=== PATIENT | male | born 1965 | race African-American/Black ===

== ENCOUNTER 2017-06-14 17:04 | Emergency (ER) | payer SELFPAY ==
--- NOTE | 2017-06-14 17:25 | ER Document Report ---
ED Medical Screen (RME) - General Chief Complaint: Leg Pain Stated Complaint: RIGHT LEG PAIN Time Seen by Provider: 06/14/17 17:18 Mode of Arrival: Wheelchair Information source: Patient, Relative TRAVEL OUTSIDE OF THE U.S. IN LAST 30 DAYS: No - HPI Patient complains to provider of: R leg pain Onset: Yesterday - Pt. with h/o arterial shunts in both [place] with c/o R leg (thigh) pain starting yesterday - Related Data Allergies/Adverse Reactions: No Known Allergies Allergy (Unverified 06/14/17 17:11) Past Medical History Renal/ Medical History: Denies: Hx Peritoneal Dialysis Physical Exam - Vital signs Vitals: Temp Pulse Resp BP Pulse Ox 98.6 F 108 H 18 149/74 H 99 06/14/17 17:10 06/14/17 17:10 06/14/17 17:10 06/14/17 17:10 06/14/17 17:10 Course - Vital Signs Vital signs: Temp Pulse Resp BP Pulse Ox 98.6 F 108 H 18 149/74 H 99 06/14/17 17:10 06/14/17 17:10 06/14/17 17:10 06/14/17 17:10 06/14/17 17:10
[2017-06-14 17:40] LABS: ABSOLUTE BASOPHILS # (AUTO) 0.1 10^3/uL (0.0-0.2); ABSOLUTE EOSINOPHILS # (AUTO) 0.2 10^3/uL (0.0-0.6); ABSOLUTE LYMPHOCYTES (AUTO) 1.8 10^3/uL (0.5-4.7); ABSOLUTE MONOCYTES (AUTO) 0.5 10^3/uL (0.1-1.4); ABSOLUTE NEUT (AUTO) 3.5 10^3/uL (1.7-8.2); BASOPHILS % (AUTO) 1.1 % (0-2); EOSINOPHILS % (AUTO) 3.6 % (0-6); HEMATOCRIT 38.2 % (37.9-51.0); HEMOGLOBIN 12.4 g/dL (13.5-17.0); LYMPHOCYTES % (AUTO) 29.3 % (13-45); MEAN CORPUSCULAR HEMOGLOBIN 27.6 pg (27.0-33.4); MEAN CORPUSCULAR HGB CONC 32.5 g/dL (32.0-36.0); MEAN CORPUSCULAR VOLUME 85 fl (80-97); MONOCYTES % (AUTO) 8.7 % (3-13); RED BLOOD COUNT 4.49 10^6/uL (4.35-5.55); SEGMENTED NEUTROPHILS % (AUTO) 57.3 % (42-78); WHITE BLOOD COUNT 6.1 10^3/uL (4.0-10.5)
[2017-06-14 17:58] LABS: ALANINE AMINOTRANSFERASE 26 U/L (21-72); ALBUMIN 3.7 g/dL (3.5-5.0); ALKALINE PHOSPHATASE 176 U/L (38-126); ANION GAP 13 (5-19); ASPARTATE AMINO TRANSFERASE 16 U/L (17-59); BILIRUBIN,DIRECT 0.3 mg/dL (0.0-0.4); BILIRUBIN,TOTAL 0.6 mg/dL (0.2-1.3); BLOOD UREA NITROGEN 19 mg/dL (7-20); CALCIUM 9.3 mg/dL (8.4-10.2); CARBON DIOXIDE 23 mmol/L (22-30); CHLORIDE 103 mmol/L (98-107); CREATININE RESULT 1.38 mg/dL (0.52-1.25); GLUCOSE 255 mg/dL (75-110); POTASSIUM 4.4 mmol/L (3.6-5.0); SODIUM 139.3 mmol/L (137-145); TOTAL PROTEIN 6.3 g/dL (6.3-8.2)
--- NOTE | 2017-06-14 18:09 | ER Document Report ---
ED Extremity Problem, Lower - General Chief Complaint: Leg Pain Stated Complaint: RIGHT LEG PAIN Time Seen by Provider: 06/14/17 17:18 Mode of Arrival: Wheelchair Notes: The patient is a 51-year-old male, past medical history PAD with right femoral artery stent performed in [place], presents with increasing right upper leg pain is worse when he walks. He recently moved here from [place]. He denies numbness, tingling, injury, hip pain, back pain, urinary symptoms, fevers or rash. TRAVEL OUTSIDE OF THE U.S. IN LAST 30 DAYS: No - Related Data Allergies/Adverse Reactions: No Known Allergies Allergy (Unverified 06/14/17 17:11) Past Medical History - General Information source: Patient, Relative - Social History Smoking Status: Never Smoker Chew tobacco use (# tins/day): No Frequency of alcohol use: None Drug Abuse: None Family History: Reviewed & Not Pertinent - Past Medical History Cardiac Medical History: Reports: Hx Hypercholesterolemia, Hx Hypertension Endocrine Medical History: Reports: Hx Diabetes Mellitus Type 2 Renal/ Medical History: Denies: Hx Peritoneal Dialysis Review of Systems - Review of Systems Notes: REVIEW OF SYSTEMS: CONSTITUTIONAL: -fevers, -chills EENT: -eye pain, -difficulty swallowing, -nasal congestion CARDIOVASCULAR:-chest pain, -syncope. RESPIRATORY: -cough, -SOB GASTROINTESTINAL: -abdominal pain, - nausea, -vomiting, -diarrhea GENITOURINARY: -dysuria, -hematuria MUSCULOSKELETAL: +right upper leg pain, -back pain, -neck pain SKIN: -rash or skin lesions. HEMATOLOGIC: -easy bruising or bleeding. LYMPHATIC: -swollen, enlarged glands. NEUROLOGICAL: -altered mental status or loss of consciousness, -headache, - neurologic symptoms PSYCHIATRIC: -anxiety, -depression. ALL OTHER SYSTEMS REVIEWED AND NEGATIVE. Physical Exam - Vital signs Vitals: Temp Pulse Resp BP Pulse Ox 98.6 F 108 H 18 149/74 H 99 06/14/17 17:10 06/14/17 17:10 06/14/17 17:10 06/14/17 17:10 06/14/17 17:10 - Notes Notes: PHYSICAL EXAMINATION: GENERAL: Well-appearing, well-nourished and in no acute distress. HEAD: Atraumatic, normocephalic. EYES: Pupils equal round and reactive to light, extraocular movements intact, sclera anicteric, conjunctiva are normal. ENT: nares patent, oropharynx clear without exudates. Moist mucous membranes. NECK: Normal range of motion, supple without lymphadenopathy LUNGS: Breath sounds clear to auscultation bilaterally and equal. No wheezes rales or rhonchi. HEART: Regular rate and rhythm without murmurs ABDOMEN: Soft, nontender, normoactive bowel sounds. No guarding, no rebound. No masses appreciated. EXTREMITIES: Tenderness over right anterior thigh, sensation intact distally, strong DP, PT and popliteal pulses. Normal range of motion, no pitting or edema. No cyanosis. NEUROLOGICAL: Cranial nerves grossly intact. Normal speech, normal gait. Normal sensory and motor exams. PSYCH: Normal mood, normal affect. SKIN: Warm, Dry, normal turgor, no rashes or lesions noted. Course - Re-evaluation Re-evalutation: Patient does not have evidence of DVT and he has good flow through his femoral artery stent and rest of arteries. Labs are unremarkable. Suspect a quadricep muscle strain causing his symptoms. Instructed him to continue Tylenol, NSAIDs and f/u with PMD. Also, provided him with the Vascular Surgeon in [facility] for close f/u since he has now moved to [place], [place] and he has PAD. - Vital Signs Vital signs: Temp Pulse Resp BP Pulse Ox 97.5 F 97 20 148/80 H 99 06/14/17 19:58 06/14/17 19:58 06/14/17 19:58 06/14/17 19:58 06/14/17 19:58 - Laboratory Result Diagrams: 06/14/17 17:28 06/14/17 17:28 Laboratory results interpreted by me: 06/14/17 06/14/17 17:28 17:28 Hgb 12.4 L RDW 15.0 H Creatinine 1.38 H Est GFR (Non-Af Amer) 54 L Glucose 255 H AST 16 L Alkaline Phosphatase 176 H - Diagnostic Test Radiology reviewed: Image reviewed, Reports reviewed Discharge - Discharge Clinical Impression: Right leg pain Condition: Stable Disposition: HOME, SELF-CARE Additional Instructions: Your ultrasound today shows good blood flow through your arteries and stents. You may apply ice packs and take Aleve to help with any pain. Follow-up with your primary care physician and vascular surgeon. Sprain Your injury is a sprain. A sprain results from stretching or tearing of the ligaments, usually from a twisting injury. The ligaments will require time and protection in order to heal properly. Many sprains are quite disabling and should be taken seriously. The usual initial treatment of sprains is cold packs, elevation, and rest of the injured area. Your physician has assessed the seriousness of your ligament injury, and has outlined a treatment plan. Understand that this treatment may change, depending on how you progress. If a re-examination was recommended, it is important that you follow up as instructed. Call the doctor any time if there is severe pain, numbness, or loss of function in the injured area. Forms: Elevated Blood Pressure Referrals: ADALID LATIF MD [ACTIVE STAFF] - Follow up as needed
[2017-06-14] MEDS ORDERED: NAPROXEN 250 MG TABLET PO ONE (18:46)
[2017-06-14 20:02] VITALS: BP 148/80
--- NOTE | 2017-06-14 20:04 | RADIOLOGY REPORT (SQ) ---
EXAM DESCRIPTION: VENOUS UNILATERAL LOWER COMPLETED DATE/TIME: 06/14/2017 7:45 pm REASON FOR STUDY: R leg pain COMPARISON: None. TECHNIQUE: Dynamic and static macias scale and color images acquired of the right leg venous system. S elected spectral images acquired with additional compression and augmentation maneuvers. The contrala teral common femoral vein and saphenofemoral junction were also imaged. Images stored on PACS. LIMITATIONS: None. FINDINGS: COMMON FEMORAL: Normal phasicity, compression and augmentation. No visualized echogenic ma terial on macias scale. No defects on color images. FEMORAL: Normal compression and augmentation. No visualized echogenic material on macias scale. No defe cts on color images. POPLITEAL: Normal compression, augmentation. No visualized echogenic material on macias scale. No defec ts on color images. CALF VESSELS: Normal compression, augmentation. No visualized echogenic material on macias scale. No de fects on color images. GSV and SSV: Normal compression, augmentation. No visualized echogenic material on macias scale. No def ects on color images. ANY DEEP VENOUS INSUFFICIENCY: Not evaluated. ANY EVIDENCE OF POPLITEAL CYST: No. OTHER: No other significant finding. CONTRALATERAL COMMON FEMORAL VEIN AND SAPHENOFEMORAL JUNCTION: Normal phasicity, compression and augmentation. No visualized echogenic material on macias scale. No de fects on color images. IMPRESSION: NO EVIDENCE OF DVT OR SVT IN THE RIGHT LEG. TECHNICAL DOCUMENTATION: JOB ID: [id number] [employer]- All Rights Reserved
== END 2017-06-14 20:02 | disposition home or self-care (01) ==
LOC: ER 17:04
DX: M79.651 Pain in right thigh (principal); E78.00 Pure hypercholesterolemia, unspecified; I10 Essential (primary) hypertension; E11.9 Type 2 diabetes mellitus without complications; Z98.890 Other specified postprocedural states
CPT/HCPCS: 36415; 80053; 85025; 93971; 99284

== ENCOUNTER 2017-12-11 23:24 | Emergency (ER) | payer BC ==
[2017-12-12] MEDS ORDERED: NORMAL SALINE 1000 ML 1,000 ML IV ONE (00:50)
[2017-12-12] MEDS ORDERED: DIPHENHYDRAMINE HCL 50 MG/ML VIAL IV ONE (00:50)
[2017-12-12] MEDS ORDERED: METOCLOPRAMIDE HCL INJ/PF 10 MG/2 ML SDV IV ONE (00:50)
--- NOTE | 2017-12-12 00:51 | ER Document Report ---
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 He does not remember a neck injury. Patient denies blurry vision, fevers, chest pain, shortness of breath, nausea, vomiting, back pain, ataxia, focal weakness, numbness, tingling or sudden onset of headache. TRAVEL OUTSIDE OF THE U.S. IN LAST 30 DAYS: No - Related Data Allergies/Adverse Reactions: No Known Allergies Allergy (Unverified 06/14/17 17:11) Past Medical History - General Information source: Patient - Social History Smoking Status: Unknown if Ever Smoked Family History: Reviewed & Not Pertinent - Past Medical History Cardiac Medical History: Reports: Hx Hypercholesterolemia, Hx Hypertension Endocrine Medical History: Reports: Hx Diabetes Mellitus Type 2 Renal/ Medical History: Denies: Hx Peritoneal Dialysis Review of Systems - Review of Systems Notes: REVIEW OF SYSTEMS: CONSTITUTIONAL: -fevers, -chills EENT: -eye pain, -difficulty swallowing, -nasal congestion CARDIOVASCULAR: -chest pain, -syncope. RESPIRATORY: -cough, -SOB GASTROINTESTINAL: -abdominal pain, -nausea, -vomiting, -diarrhea GENITOURINARY: -dysuria, -hematuria MUSCULOSKELETAL: -back pain, -neck pain SKIN: -rash or skin lesions. HEMATOLOGIC: -easy bruising or bleeding. LYMPHATIC: -swollen, enlarged glands. NEUROLOGICAL: -altered mental status or loss of consciousness, +headache, - neurologic symptoms PSYCHIATRIC: -anxiety, -depression. ALL OTHER SYSTEMS REVIEWED AND NEGATIVE. Physical Exam - Vital signs Vitals: Temp Pulse Resp BP Pulse Ox 98.9 F 99 18 153/68 H 97 12/11/17 23:54 12/11/17 23:54 12/11/17 23:54 12/11/17 23:54 12/11/17 23:54 - Notes Notes: PHYSICAL EXAMINATION: GENERAL: Well-appearing, well-nourished and in no acute distress. HEAD: Atraumatic, normocephalic. EYES: Pupils equal round and reactive to light, extraocular movements intact, sclera anicteric, conjunctiva are normal. ENT: nares patent, oropharynx clear without exudates. Moist mucous membranes. NECK: Tenderness over B/L posterior paraspinal muscles. Normal range of motion, supple without lymphadenopathy LUNGS: Breath sounds clear to auscultation bilaterally and equal. No wheezes rales or rhonchi. HEART: Regular rate and rhythm without murmurs ABDOMEN: Soft, nontender, normoactive bowel sounds. No guarding, no rebound. No masses appreciated. EXTREMITIES: Normal range of motion, no pitting or edema. No cyanosis. NEUROLOGICAL: Cranial nerves grossly intact. Normal speech, normal gait. Normal sensory and motor exams. PSYCH: Normal mood, normal affect. SKIN: Warm, Dry, normal turgor, no rashes or lesions noted. Course - Re-evaluation Re-evalutation: Patient appears well. His symptoms are consistent with a tension headache from neck strain. He has absolutely no neuro symptoms to suggest a CVA and his symptoms are not consistent with meningitis, SAH or ICH at this time. After anti-inflammatories and Robaxin, he feels much better. Instructed him to continue this medication follow-up with his primary care physician for further evaluation and treatment. - Vital Signs Vital signs: Temp Pulse Resp BP Pulse Ox 98.9 F 99 26 H 151/83 H 99 12/11/17 23:54 12/11/17 23:54 12/12/17 01:02 12/12/17 01:01 12/12/17 01:02 Discharge - Discharge Clinical Impression: Tension headache Condition: Stable Disposition: HOME, SELF-CARE Additional Instructions: HEADACHE: The physician does not feel that the headache you are experiencing has a serious underlying cause. Most headaches are due to emotional stress, with resultant muscle tension (tension headache). Occasionally, headaches are secondary to changes in the blood vessels of the scalp (vascular headache and migraine headache). Sometimes, a headache is the first symptom of another developing illness, such as a viral infection. You have no evidence of stroke, bleeding, meningitis, or other serious cause of your headache. The treatment of headaches varies with the severity and cause of the pain. Not all headaches need pain shots. In fact, there is evidence that using narcotics for headaches may make them worse in the long run. The physician will determine the therapy that's in your best interest. If you develop a fever, if the headache is different from any you've previously experienced, or if the headache progressively worsens, then call your physician at once or go to the emergency room. TORADOL INJECTION: You have been given an injection of ketorolac tromethamine (Toradol). This is an excellent, safe drug for pain control. It also has potent antiinflammatory action. You should have significant pain relief within about one hour. Toradol is not addicting and is non-sedating. It does not interfere with driving or work. Call or return if you develop itching, hives, shortness of breath, or rash. FOLLOW-UP CARE: If you have been referred to a physician for follow-up care, call the physician s office for an appointment as you were instructed or within the next two days. If you experience worsening or a significant change in your symptoms, notify the physician immediately or return to the Emergency Department at any time for re-evaluation. Prescriptions: Methocarbamol [Robaxin 500 mg Tablet] 500 mg PO Q4H PRN #15 tablet PRN Reason: Naproxen [Naprosyn 250 mg Tablet] 500 mg PO Q12H PRN #14 tablet PRN Reason: Forms: Elevated Blood Pressure Referrals: LUPIS MATA MD [COMMUNITY BASED STAFF] - Follow up as needed
[2017-12-12] MEDS ORDERED: KETOROLAC TROMETHAMINE 60 MG/2 ML SDV IM ONE (01:06)
[2017-12-12] MEDS ORDERED: METHOCARBAMOL 500 MG TABLET PO ONE (01:06)
[2017-12-12 01:46] VITALS: BP 151/83
== END 2017-12-12 01:49 | disposition home or self-care (01) ==
LOC: ER 23:24
DX: G44.209 Tension-type headache, unspecified, not intractable (principal); M54.2 Cervicalgia; I69.30 Unspecified sequelae of cerebral infarction; I10 Essential (primary) hypertension; E11.9 Type 2 diabetes mellitus without complications
CPT/HCPCS: 99284; 96372; J1885

== ENCOUNTER 2018-02-09 14:37 | Emergency (ER) | payer BC ==
[2018-02-09] MEDS ORDERED: NORMAL SALINE 1000 ML 1,000 ML IV ONE (16:04)
--- NOTE | 2018-02-09 16:07 | ER Document Report ---
ED Medical Screen (RME) - General Chief Complaint: Leg Pain Stated Complaint: LEFT SIDE PAIN Time Seen by Provider: 02/09/18 15:52 Mode of Arrival: Ambulatory Information source: Patient TRAVEL OUTSIDE OF THE U.S. IN LAST 30 DAYS: No - HPI Patient complains to provider of: leg cramps Notes: 02/09/18 16:06 Patient is here with complaints of leg cramps. The patient's had prior stroke. States that today he was having significant cramps in both of his legs mainly in the calf and he was having difficulty walking due to this. He denies any nausea, vomiting. No chest pain or shortness of breath. He denies any unilateral numbness, tingling, weakness. Physical exam: Nontoxic-appearing in no distress. Nonfocal neurological exam. Tenderness to the bilateral calves. Plan: CBC, CMP, mag, phosphorus, CPK, IV fluids. An initial examination was made on the patient as part of the triage process, and it was determined a more comprehensive evaluation was necessary. Initial labs were ordered and patient was transferred to another provider in the ED who assumed care and finished evaluation and plan. - Related Data Allergies/Adverse Reactions: No Known Allergies Allergy (Verified 02/09/18 14:52) Past Medical History - Past Medical History Cardiac Medical History: Reports: Hx Hypercholesterolemia, Hx Hypertension Endocrine Medical History: Reports: Hx Diabetes Mellitus Type 2 Renal/ Medical History: Denies: Hx Peritoneal Dialysis Physical Exam - Vital signs Vitals: Temp Pulse Resp BP Pulse Ox 98.7 F 105 H 15 157/87 H 99 02/09/18 14:51 02/09/18 14:51 02/09/18 14:51 02/09/18 14:51 02/09/18 14:51 Course - Vital Signs Vital signs: Temp Pulse Resp BP Pulse Ox 98.7 F 105 H 15 157/87 H 99 02/09/18 14:51 02/09/18 14:51 02/09/18 14:51 02/09/18 14:51 02/09/18 14:51
--- NOTE | 2018-02-09 17:09 | ER Document Report ---
ED General - General Chief Complaint: Leg Pain Stated Complaint: LEFT SIDE PAIN Time Seen by Provider: 02/09/18 15:52 Mode of Arrival: Ambulatory TRAVEL OUTSIDE OF THE [place].S. IN LAST 30 DAYS: No - HPI Notes: Patient is a 52-year-old male with a previous history of CVA, PAD, tobacco abuse who presents to the ED complaining of bilateral lower extremity cramping that began today. Patient states that his cramping is worse when he is lying down. He notices that most of his pain is in his calves bilaterally. Patient states that he does have swelling of both lower extremities which is normal for him. Patient does admit to some day smoking. Denies any IV drug use. Denies any prolonged immobilization, previous DVT/PE, cancer, hormone use, recent surgery/trauma. Patient has a past medical history significant for diabetes, hypertension and is on Plavix as well. he also had stents put in his b/l LE's. no significant cardiac history otherwise. Denies any drug allergies. Patient states that he is still eating and drinking without difficulties. He is urinating normally and having normal bowel movements. No other concerns or complaints at this time. Denies any headache, fever, neck pain, URI, sore throat, chest pain, palpitations, syncope, cough, shortness of breath, wheeze, dyspnea, abdominal pain, nausea/vomiting/diarrhea, urinary retention, dysuria, hematuria, back pain, loss of control of bowel or bladder, numbness/tingling, saddle anesthesia, muscle paralysis/weakness, or rash. - Related Data Allergies/Adverse Reactions: No Known Allergies Allergy (Verified 02/09/18 18:26) Past Medical History - General Information source: Patient - Social History Smoking Status: Current Some Day Smoker Family History: Reviewed & Not Pertinent - Past Medical History Cardiac Medical History: Reports: Hx Hypercholesterolemia, Hx Hypertension Endocrine Medical History: Reports: Hx Diabetes Mellitus Type 2 Renal/ Medical History: Denies: Hx Peritoneal Dialysis Review of Systems - Review of Systems -: Yes All other systems reviewed and negative Physical Exam - Vital signs Vitals: Temp Pulse Resp BP Pulse Ox 98.7 F 105 H 15 157/87 H 99 02/09/18 14:51 02/09/18 14:51 02/09/18 14:51 02/09/18 14:51 02/09/18 14:51 - Notes Notes: PHYSICAL EXAMINATION: GENERAL: Well-appearing, well-nourished and in no acute distress. LUNGS: Breath sounds clear to auscultation bilaterally and equal. No wheezes rales or rhonchi. HEART: Regular rate and rhythm without murmurs, rubs, gallops. ABDOMEN: Soft, nontender, nondistended abdomen. No guarding, no rebound. No masses appreciated. Normal bowel sounds present. No CVA tenderness bilaterally. Musculoskeletal: Legs b/l: FROM to passive/active. Strength 5+/5. Extremities: 1+ pitting edema b/l. Peripheral pulses 1+. Capillary refill less than 3 seconds. + tenderness to the calves b/l. NEUROLOGICAL: Normal speech, normal gait. Normal sensory, motor exams PSYCH: Normal mood, normal affect. SKIN: Warm, Dry, normal turgor, no rashes or lesions noted. Course - Re-evaluation Re-evalutation: 02/09/18 20:55 Patient is an afebrile, well-hydrated, 52-year-old male who presents to the ED with remittent cramping in his lower extremities unspecified. Vitals are acceptable. PE is otherwise unremarkable for any neurovascular compromise, obvious tendon/ligament rupture, obvious fracture/dislocation, cellulitis or other infection. Per pest control technician, unofficial results state no DVT and stents are operating as they should with good pulses throughout. Patient to be given Toradol IM. I will send him home with a prescription for baclofen. Conservative measures otherwise for symptoms. Recheck with your PCM in 2-3 days. Consider consult orthopedics. Return to the ED with any worsening/ concerning symptoms otherwise as reviewed discharge. Patient is in agreement. - Vital Signs Vital signs: Temp Pulse Resp BP Pulse Ox 98.7 F 105 H 15 157/87 H 99 02/09/18 14:51 02/09/18 14:51 02/09/18 14:51 02/09/18 14:51 02/09/18 14:51 - Laboratory Result Diagrams: 02/09/18 17:13 02/09/18 17:13 Laboratory results interpreted by me: 02/09/18 02/09/18 17:13 17:13 Hgb 13.2 L RDW 15.7 H Glucose 162 H Alkaline Phosphatase 138 H Creatine Kinase 265 H Discharge - Discharge Clinical Impression: Leg cramping Condition: Stable Disposition: HOME, SELF-CARE Instructions: Leg Pain Nonspecific ([facility]) Additional Instructions: Rest, Ice, Compression, Elevation Tylenol/ibuprofen as needed Light stretches daily Strength exercises as able Moist heat and massage may help F/u with your PCP in 3-5 days for a recheck Consider consult(s) with Orthopedics/physical therapy for ongoing/worsening symptoms Return to the ED with any worsening symptoms and/or development of fever, headache, chest pain, palpitations, syncope, shortness of breath, trouble breathing, abdominal pain, n/v/d, muscle weakness/paralysis, numbness/tingling, swelling, redness, or other worsening symptoms that are concerning to you. Prescriptions: Baclofen [Baclofen 10 mg Tablet] 5 - 10 mg PO BID PRN #10 tablet PRN Reason: Naproxen 500 mg PO BID PRN #30 tablet PRN Reason: Forms: Elevated Blood Pressure Referrals: MUKUL FITZGERALD MD [Primary Care Provider] - 02/11/18 [facility] [Provider Group] - Follow up as needed
[2018-02-09 17:26] LABS: ABSOLUTE BASOPHILS # (AUTO) 0.1 10^3/uL (0.0-0.2); ABSOLUTE EOSINOPHILS # (AUTO) 0.3 10^3/uL (0.0-0.6); ABSOLUTE MONOCYTES (AUTO) 0.9 10^3/uL (0.1-1.4); ABSOLUTE NEUT (AUTO) 6.7 10^3/uL (1.7-8.2); BASOPHILS % (AUTO) 0.9 % (0-2); EOSINOPHILS % (AUTO) 2.7 % (0-6); HEMATOCRIT 39.4 % (37.9-51.0); HEMOGLOBIN 13.2 g/dL (13.5-17.0); LYMPHOCYTES % (AUTO) 20.2 % (13-45); MEAN CORPUSCULAR HEMOGLOBIN 28.7 pg (27.0-33.4); MEAN CORPUSCULAR HGB CONC 33.4 g/dL (32.0-36.0); MEAN CORPUSCULAR VOLUME 86 fl (80-97); MONOCYTES % (AUTO) 9.2 % (3-13); PLATELET COUNT 250 10^3/uL (150-450); RED BLOOD COUNT 4.58 10^6/uL (4.35-5.55); RED CELL DISTRIBUTION WIDTH 15.7 % (11.5-14.0); TOTAL CELLS COUNTED % (AUTO) 100 %
[2018-02-09 17:50] LABS: ALANINE AMINOTRANSFERASE 34 U/L (21-72); ALBUMIN 3.7 g/dL (3.5-5.0); ALKALINE PHOSPHATASE 138 U/L (38-126); ANION GAP 11 (5-19); ASPARTATE AMINO TRANSFERASE 21 U/L (17-59); BILIRUBIN,DIRECT 0.3 mg/dL (0.0-0.4); BILIRUBIN,TOTAL 0.8 mg/dL (0.2-1.3); BLOOD UREA NITROGEN 13 mg/dL (7-20); CALCIUM 8.9 mg/dL (8.4-10.2); CARBON DIOXIDE 27 mmol/L (22-30); CHLORIDE 103 mmol/L (98-107); CREATINE KINASE 265 U/L (55-170); GLUCOSE 162 mg/dL (75-110); PHOSPHORUS 3.5 mg/dL (2.5-4.5); POTASSIUM 4.1 mmol/L (3.6-5.0); SODIUM 141.1 mmol/L (137-145); TOTAL PROTEIN 6.4 g/dL (6.3-8.2)
[2018-02-09] MEDS ORDERED: KETOROLAC TROMETHAMINE INJ/PF 30 MG/1 ML SDV IM ONE (20:58)
[2018-02-09 21:13] VITALS: BP 149/84
--- NOTE | 2018-02-10 11:04 | XCELERA REPORT ---
[address] [address] Lower Extremity Venous Evaluation Name: EMPERATRIZ ALVAREZ JR Age: 52 yrs Gender: Male : 1965 Patient Status: Emergency Patient Location: ER Study Date: 02/09/2018 08:20 PM Procedure: Color flow and duplex imaging bilaterally of the veins of the lower extremities as well as the Common Femoral veins. Reason For Study: calf pains b/l Ordering Physician: LUPIS SORTO PA-C Performed By: Ruthann Winston Right Sided Venous Evaluation Normal vessel filling wall to wall, compression and augmentation as well as Colour flow down to the infrageniculate veins. Left Sided Venous Evaluation Normal vessel filling wall to wall, compression and augmentation as well as Colour flow down to the infrageniculate veins. Interpretation Summary No duplex evidence of DVT or obstruction in the bilateral lower extremities. : LUPIS SORTO PA-C > Chinmay Thompson
== END 2018-02-09 21:12 | disposition home or self-care (01) ==
LOC: ER 14:37
DX: R25.2 Cramp and spasm (principal); M79.662 Pain in left lower leg; M79.661 Pain in right lower leg; R60.0 Localized edema; E11.51 Type 2 diabetes mellitus with diabetic peripheral angiopathy without gangrene; I10 Essential (primary) hypertension; F17.200 Nicotine dependence, unspecified, uncomplicated; Z95.820 Peripheral vascular angioplasty status with implants and grafts; Z86.73 Personal history of transient ischemic attack (TIA), and cerebral infarction without residual deficits; Z79.02 Long term (current) use of antithrombotics/antiplatelets
CPT/HCPCS: 99284; 36415; 82550; 83735; 84100; 85025; 80053; 93970 ×2; J1885; J7030

== ENCOUNTER → 2018-02-20 | Outpatient (CLI) | payer BC ==
--- NOTE | 2018-02-20 13:30 | RADIOLOGY REPORT (SQ) ---
EXAM DESCRIPTION: U/S RETROPERITON (RENAL/AORTA) COMPLETED DATE/TIME: 02/20/2018 1:09 pm REASON FOR STUDY: ACUTE KIDNEY FAILURE (N17.9), SMALL KIDNEY, UNILATERAL (N27.0) N17.9 ACUTE KIDNEY FAILURE, UNSPECIFIED N27.0 SMALL KIDNEY, UNILATERAL COMPARISON: None. TECHNIQUE: Dynamic and static grayscale images acquired of the kidneys and bladder and recorded on P ACS. Additional selected color Doppler and spectral images recorded. LIMITATIONS: None. FINDINGS: RIGHT KIDNEY: Normal size, 13.5 cm in length. Normal echogenicity. No solid or suspicious masses. Simple cyst 6 cm in the mid pole right kidney. No hydronephrosis. No calcifications. LEFT KIDNEY: Normal size, 11.7 cm in length. Normal echogenicity. No solid or suspicious masses. 3 cm left upper pole simple cyst, 4 cm left midpole simple cyst. No hydronephrosis. No calcifications. BLADDER: No masses. Bilateral ureteral jets are identified OTHER FINDINGS: No other significant finding. IMPRESSION: NORMAL RENAL AND BLADDER ULTRASOUND. TECHNICAL DOCUMENTATION: JOB ID: [id number] [employer]- All Rights Reserved Reading location - IP/workstation name: [email or web address]
== END ==
LOC: RAD 12:30
PROVIDERS: ATTEND Internal Medicine Nephrology
DX: N17.9 Acute kidney failure, unspecified (principal); N27.0 Small kidney, unilateral
CPT/HCPCS: 76770

== ENCOUNTER → 2018-03-26 | Outpatient (CLI) | payer BC ==
[2018-03-26 14:51] LABS: APPEARANCE,URINE CLEAR; BILIRUBIN,URINE NEGATIVE (NEGATIVE); COLOR,URINE YELLOW; GLUCOSE, URINE 150 mg/dL (NEGATIVE); KETONES,URINE NEGATIVE (NEGATIVE); LEUKOCYTE ESTERASE,URINE NEGATIVE (NEGATIVE); NITRITE,URINE NEGATIVE (NEGATIVE); PROTEIN,URINE >=500 mg/dL (NEGATIVE); URINE SPECIFIC GRAVITY 1.012
[2018-03-26 15:27] LABS: ANION GAP 10 (5-19); BLOOD UREA NITROGEN 9 mg/dL (7-20); CARBON DIOXIDE 24 mmol/L (22-30); CHLORIDE 107 mmol/L (98-107); GLUCOSE 190 mg/dL (75-110); POTASSIUM 3.8 mmol/L (3.6-5.0); SODIUM 141.4 mmol/L (137-145)
[2018-03-27 12:39] LABS: CREATININE URINE 118.7 mg/dL (Not Estab.)
[2018-03-28 12:00] LABS: MICROALBUMIN URINE 1566.7 ug/mL (Not Estab.)
== END ==
LOC: LAB 14:27
PROVIDERS: ATTEND Internal Medicine Nephrology
DX: N17.9 Acute kidney failure, unspecified (principal); N27.0 Small kidney, unilateral; E11.9 Type 2 diabetes mellitus without complications
CPT/HCPCS: 36415; 80048; 81001; 82043; 82570

== ENCOUNTER → 2018-03-31 | Outpatient (CLI) | payer BC ==
--- NOTE | 2018-03-31 11:55 | RADIOLOGY REPORT (SQ) ---
EXAM DESCRIPTION: L SPINE WHOLE COMPLETED DATE/TIME: 03/31/2018 11:44 am REASON FOR STUDY: LOW BACK PAIN (M54.5) M54.5 LOW BACK PAIN COMPARISON: None. NUMBER OF VIEWS: Five views including obliques. TECHNIQUE: AP, lateral, oblique, and sacral radiographic images acquired of the lumbar spine. LIMITATIONS: None. FINDINGS: MINERALIZATION: Normal. SEGMENTATION: Normal. No transitional anatomy. ALIGNMENT: Normal. VERTEBRAE: Maintained height. No fracture or worrisome bone lesion. DISCS: Mild disc space loss of height with anterior and posterior osteophyte formation at L2-3, L3-4, and L4-5 POSTERIOR ELEMENTS: Pedicles and facets are intact. No pars defect or posterior arch defects. With mild bilateral facet arthropathy at L4-5 and L5-S1 HARDWARE: None in the spine. PARASPINAL SOFT TISSUES: Normal. PELVIS: Not in the field of view OTHER: No other significant finding. IMPRESSION: Lumbar disc space loss of height and facet arthropathy as above TECHNICAL DOCUMENTATION: JOB ID: [id number] [employer]- All Rights Reserved Reading location - IP/workstation name: [email or web address]
== END ==
LOC: RAD 11:04
PROVIDERS: ATTEND Nurse Practitioner
DX: M54.5 Low back pain (principal)
CPT/HCPCS: 72110

== ENCOUNTER 2019-08-01 16:21 | Emergency (ER) | payer BC, MEDICARE ==
[2019-08-01 16:29] VITALS: BP 187/82
[2019-08-01] MEDS ORDERED: KETOROLAC TROMETHAMINE 60 MG/2 ML SDV IM ONE (16:40)
[2019-08-01] MEDS ORDERED: METHOCARBAMOL 500 MG TABLET PO ONE (16:40)
--- NOTE | 2019-08-01 16:47 | ER Document Report ---
HPI - HPI Time Seen by Provider: 08/01/19 16:32 Context: Patient is a 53-year-old male with a history of CVA, hypertension, diabetes presents to the emergency department with a chief complaint of low back pain. Patient reports he does have chronic low back pain and "issues "in his L4 and L5. Patient reports when he lived in [place] he did see a pain management doctor who did give him injections in his back. Patient reports this did help with his symptoms. Patient reports he does have a primary care physician in [place] but does not take anything for his pain and does not have a pain management doctor here locally. Patient reports 3 days ago he developed left lower back pain. Patient reports there was no injury or fall. Patient denies heavy lifting. Patient reports this is nonradiating. Patient reports it feels like it is on the muscle. Patient reports it is sharp in nature and worse with movement or twisting. Patient denies radiation of pain to his lower extremities. Patient denies numbness or tingling to his lower extremities. Patient denies loss of bowel or bladder, saddle anesthesia. Past Medical History - General Information source: Patient - Social History Smoking Status: Never Smoker Frequency of alcohol use: None Drug Abuse: None Lives with: Family Family History: Reviewed & Not Pertinent - Past Medical History Cardiac Medical History: Reports: Hx Hypercholesterolemia, Hx Hypertension Pulmonary Medical History: Reports: None EENT Medical History: Reports: None Neurological Medical History: Reports: Hx Cerebrovascular Accident Endocrine Medical History: Reports: Hx Diabetes Mellitus Type 2 Renal/ Medical History: Reports: None. Denies: Hx Peritoneal Dialysis Malignancy Medical History: Reports None GI Medical History: Reports: None Musculoskeletal Medical History: Reports None Skin Medical History: Reports None Psychiatric Medical History: Reports: None Traumatic Medical History: Reports: None Infectious Medical History: Reports: None Surgical Hx: Negative Vertical Provider Document - CONSTITUTIONAL Agree With Documented VS: Yes Exam Limitations: No Limitations General Appearance: No Apparent Distress - INFECTION CONTROL TRAVEL OUTSIDE OF THE [place] IN LAST 30 DAYS: No - HEENT HEENT: Atraumatic, Normocephalic, PERRLA - NECK Neck: Normal Inspection - RESPIRATORY Respiratory: Breath Sounds Normal, No Respiratory Distress - CARDIOVASCULAR Cardiovascular: Regular Rate, Regular Rhythm - GI/ABDOMEN Gastrointestinal: Abdomen Soft, Abdomen Non-Tender, Normal Bowel Sounds - BACK Back: Normal Inspection Notes: Left paraspinal tenderness with palpation. There is no cervical, thoracic or lumbar midline tenderness. Normal gait, no focal neurological deficits, normal upper and lower extremity strength. - NEURO Level of Consciousness: Awake, Alert, Appropriate - DERM Integumentary: Warm, Dry, No Rash Course - Re-evaluation Re-evalutation: 08/01/19 16:55 I did inform the patient ultimately needs to follow-up with his primary care physician and obtain a pain management doctor here locally. We will give the patient muscle relaxers as he does have left paraspinal tenderness and anti-inflammatories. Patient reports he is not taking anything for his discomfort over the past 3 days. Patient verbalized understanding. Strict return precautions given. - Vital Signs Vital signs: Temp Pulse Resp BP Pulse Ox 98.2 F 111 H 16 187/82 H 96 08/01/19 16:24 08/01/19 16:24 08/01/19 16:24 08/01/19 16:24 08/01/19 16:24 Discharge - Discharge Clinical Impression: Chronic low back pain Qualifiers: Back pain laterality: left Sciatica presence: without sciatica Qualified Code(s): M54.5 - Low back pain Condition: Stable Disposition: HOME, SELF-CARE Additional Instructions: Today you are seen in the emergency department for back pain. This does appear to be an acute exacerbation of your chronic back pain. I am prescribing you oral anti-inflammatories as well as a muscle relaxer. Do not drive while muscle relaxers as they can make you groggy and drowsy. Please follow-up with your primary care physician as she can give your referral for pain management. Ultimately you may need to follow-up with pain management for your chronic back pain and to receive injections in your back which did seem to help when you lived in [place]. Please return to the emergency department if you develop any new symptoms such as numbness or tingling, pain that is different, loss of bowel or bladder or numbness and tingling around the groin or rectum. LOW BACK PAIN: Three out of every four people will have an episode of disabling back pain during their lifetime. Most commonly the pain is due to straining of the musc les and ligaments in the low back. Usual treatment includes: (1) Rest on a firm surface. Avoid lying on your stomach. (2) Ice pack the painful area. After a few days, gentle heat may be used intermittently to relax the area, or ice packs can be continued. (3) Medication may be needed -- muscle relaxers and antiinflammatory medicines are commonly used. (4) As the back improves, exercises are prescribed to strengthen the back and abdominal muscles. Your doctor will advise you on the proper care for your back at each stage in your recovery. You may be better in a few days -- or healing may take several weeks. If new symptoms of a "herniated disc" (radiation of pain, numbness, or tingling down the back of the leg or weakness in the leg) occur, you should be re-examined. Further testing may be necessary. PAIN MEDICATION INJECTION: You have received an injection of a pain medication. You should experience significant pain relief within 45 minutes. If this injection was a narcotic -- it will impair your judgement, slow your reaction time and make you sleepy (as well as relieve your pain). Narcotics also can cause nausea. You should not drive, work with machinery, or perform any task requiring mental alertness until all effects of the medication are gone -- six to eight hours. Do not take any alcohol, or sedatives, and do not take any other med ication without checking with your physician. MUSCLE RELAXERS: Muscle relaxing medications are usually prescribed for acute muscle spasm or injury to the neck and back. They are often combined with antiinflammatory pain medication for increased relief. You may stop the muscle relaxer when the pain and stiffness have improved. Start the medication again if spasms recur. Muscle relaxers may cause drowsiness, especially with the first dose. Do not operate machinery or drive while under the effects of the medication. Most muscle relaxers last up to 24 hours. Do not combine the medication with alcohol. ICE PACKS: Apply ice packs frequently against the painful area. Many different schedules are recommended, such as "20 minutes on, 20 minutes off" or "one hour ice, two hours rest." If you need to work, you may need to go longer between ice treatments. You should plan to have the area ice packed AT LEAST one fourth of the time. The ice should be applied over the wrap, tape, or splint, or over a layer of cloth -- not directly against the skin. Some ice bags have a built-in cloth and can be put directly on the skin. WARM PACKS: After approximately two days, apply gentle heat (such as a heating pad or hot water bottle) for about 20 to 30 minutes about every two hours -- at least four times daily. Warmth and elevation will help you make a more rapid recovery, and will ease the pain considerably. Do not use HOT heat, and never apply heat for longer than 30 minutes. The continuous heat can invisibly damage skin and muscles -- even when no burn is seen on the surface. Damaged muscles can make you MORE sore. FOLLOW-UP CARE: If you have been referred to a physician for follow-up care, call the physicians office for an appointment as you were instructed or within the next two days. If you experience worsening or a significant change in your symptoms, notify the physician immediately or return to the Emergency Department at any time for re-evaluation. Prescriptions: Ketorolac Tromethamine [Toradol 10 mg Tablet] 10 mg PO Q8HP PRN #21 tablet PRN Reason: Methocarbamol [Robaxin 500 mg Tablet] 1,000 mg PO TID #21 tablet Referrals: BRODERICK WINKLER MD [Primary Care Provider] - Follow up as needed
== END 2019-08-01 17:19 | disposition home or self-care (01) ==
LOC: ER 16:21
DX: M54.5 Low back pain (principal); I10 Essential (primary) hypertension; E11.9 Type 2 diabetes mellitus without complications; E78.00 Pure hypercholesterolemia, unspecified; Z86.73 Personal history of transient ischemic attack (TIA), and cerebral infarction without residual deficits
CPT/HCPCS: 99283; 96372; J1885; A9270

== ENCOUNTER 2020-05-20 09:48 | Observation (INO) | payer MEDICARE ==
[2020-05-20] MEDS ORDERED: NORMAL SALINE 1000 ML 1,000 ML IV ONE (11:02)
--- NOTE | 2020-05-20 11:02 | ER Document Report ---
ED Medical Screen (RME) - General Chief Complaint: Mouth Problem Stated Complaint: MOUTH SWELLING Time Seen by Provider: 05/20/20 10:59 Notes: 54-year-old male presented to ED for swelling to his tongue and lips since he woke up this morning. He states he is on lisinopril. He states he woke up and his lips and tongue were swollen and he does have some trouble talking. He states he is still able to swallow and breathe states it is getting worse as the day goes on. I have greeted and performed a rapid initial assessment of this patient. A comprehensive ED assessment and evaluation of the patient, analysis of test results and completion of medical decision making process will be conducted by an additional ED providers. TRAVEL OUTSIDE OF THE U[place] IN LAST 30 DAYS: No - Related Data Allergies/Adverse Reactions: No Known Allergies Allergy (Verified 09/27/19 15:57) Past Medical History - Past Medical History Cardiac Medical History: Reports: Hx Hypercholesterolemia, Hx Hypertension Neurological Medical History: Reports: Hx Cerebrovascular Accident Endocrine Medical History: Reports: Hx Diabetes Mellitus Type 2 Renal/ Medical History: Denies: Hx Peritoneal Dialysis Physical Exam - Vital signs Vitals: Temp Pulse Resp BP Pulse Ox 98.4 F 96 16 171/79 H 100 05/20/20 10:06 05/20/20 10:06 05/20/20 10:06 05/20/20 10:06 05/20/20 10:06 Course - Vital Signs Vital signs: Temp Pulse Resp BP Pulse Ox 98.4 F 96 16 174/82 H 100 05/20/20 10:06 05/20/20 10:06 05/20/20 10:06 05/20/20 10:08 05/20/20 10:06
[2020-05-20] MEDS ORDERED: RACEPINEPHRINE HCL 2.25% NEB 0.5 ML AMPUL NEB ONE (11:09)
[2020-05-20] MEDS ORDERED: DIPHENHYDRAMINE HCL 50 MG/ML VIAL IV ONE (11:09)
[2020-05-20] MEDS ORDERED: METHYLPREDNISOLONE INJ 40 MG/1 ML SDV IV ONE (11:09)
[2020-05-20] MEDS ORDERED: FAMOTIDINE INJ/PF 20 MG/2 ML SDV IV ONE (11:09)
--- NOTE | 2020-05-20 11:14 | ER Document Report ---
ED General - General Chief Complaint: Mouth Problem Stated Complaint: MOUTH SWELLING Time Seen by Provider: 05/20/20 10:59 Notes: 54-year-old male -[place] taking SABINO inhibitor presents with about 5 hours of tongue swelling which is worsening slightly since its onset right greater than left trouble swallowing or change in his voice. He is able to handle secretions swallow his saliva and breathe comfortably but is been anxious in the last few hours and did not take his blood pressure medicines. Presents with hypertension. He has no neck swelling or chest pain at the moment. Has been on SABINO inhibitor for years. TRAVEL OUTSIDE OF THE [place] IN LAST 30 DAYS: No - Related Data Allergies/Adverse Reactions: lisinopril Allergy (Verified 05/20/20 11:03) Past Medical History - General Information source: Patient - Social History Smoking Status: Never Smoker Chew tobacco use (# tins/day): No Frequency of alcohol use: None Drug Abuse: None Family History: Reviewed & Not Pertinent - Past Medical History Cardiac Medical History: Reports: Hx Hypercholesterolemia, Hx Hypertension Neurological Medical History: Reports: Hx Cerebrovascular Accident Endocrine Medical History: Reports: Hx Diabetes Mellitus Type 2 Renal/ Medical History: Denies: Hx Peritoneal Dialysis Review of Systems - Review of Systems Notes: REVIEW OF SYSTEMS GEN: Denies fever, chills, weight loss ENT: Tongue swelling lip swelling trouble swallowing EYES: Denies blurry vision, eye pain, discharge CV: Denies chest pain, palpitations, edema RESP: Denies cough, shortness of breath, wheezing GI: Denies abdominal pain, nausea, vomiting, diarrhea MSK: Denies joint pain/swelling, edema, SKIN: Denies rash, skin lesions LYMPH: Denies swollen glands/lymph nodes NEURO: Denies headache, focal weakness or numbness, dizziness PSYCH: Denies depression, suicidal or homicidal ideation PHYSICAL EXAMINATION General: No acute distress, well-nourished Head: Atraumatic, normocephalic ENT: Normal lips. Right greater than left tongue edema. Soft palate edema. Normal voice. No trismus. Handling secretions well. Eyes: Conjunctiva normal, pupils equal, lids normal Neck: No JVD, supple, no guarding CVS: Normal rate, regular rhythm, no murmurs Resp: No resp distress, equal and normal breath sounds bilaterally GI: Nondistended, soft, no tenderness to palpation, no rebound or guarding Ext: No deformities, no edema, normal range of motion in upper and lower ext Back: No CVA or midline TTP Skin: No rash, warm Lymphatic: No lymphadeopathy noted Neuro: Awake, alert. Face symmetric. GCS 15. Physical Exam - Vital signs Vitals: Temp Pulse Resp BP Pulse Ox 98.4 F 96 16 171/79 H 100 05/20/20 10:06 05/20/20 10:06 05/20/20 10:06 05/20/20 10:06 05/20/20 10:06 Course - Re-evaluation Re-evalutation: 05/20/20 11:54 Patient presents with moderate angioedema no airway obstruction at this time and seems reasonably stable with very slight worsening over the last several hours Handling secretions breathing well. Hypertensive, but is also anxious and has not had his morning BP meds. Will ride this out see where he goes and perhaps treat with mild IV medication low normal lower aggressively and I do not think it has anything to do with his angioedema. He will be given FFP, as well as a full cocktail for anaphylaxis. I do not believe Berinert is indicated today given he does not have hereditary angioedema and this is likely secondary to SABINO inhibitor's I discussed with Dr. arroyo from the ICU who will evaluate the patient in the ED for ICU admission, but I suspect he will then be admitted to the hospitalist. 05/20/20 19:20 Improved clinically after meds Now showing me a picture where he might of had a welts. Could been anaphylaxis. ICU has seen, agrees with floor admission discussed with Martha Mary for full admission. - Vital Signs Vital signs: Temp Pulse Resp BP Pulse Ox 98.1 F 115 H 19 185/90 H 100 05/20/20 16:12 05/20/20 17:38 05/20/20 16:12 05/20/20 17:38 05/20/20 16:12 - Laboratory Result Diagrams: 05/20/20 11:10 05/20/20 15:15 Laboratory results interpreted by me: 05/20/20 11:10 RBC 4.28 L Hgb 12.6 L RDW 14.7 H Critical Care Note - Critical Care Note Total time excluding time spent on procedures (mins): 32 Comments: The above patient is critically ill. 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
[2020-05-20] MEDS ORDERED: NORMAL SALINE 250 ML IV PRN ×2 (11:16)
[2020-05-20 11:28] LABS: ABSOLUTE EOSINOPHILS # (AUTO) 0.2 10^3/uL (0.0-0.6); ABSOLUTE LYMPHOCYTES (AUTO) 1.7 10^3/uL (0.5-4.7); ABSOLUTE MONOCYTES (AUTO) 0.4 10^3/uL (0.1-1.4); ABSOLUTE NEUT (AUTO) 4.1 10^3/uL (1.7-8.2); BASOPHILS % (AUTO) 0.6 % (0-2); EOSINOPHILS % (AUTO) 2.6 % (0-6); HEMATOCRIT 37.9 % (37.9-51.0); HEMOGLOBIN 12.6 g/dL (13.5-17.0); LYMPHOCYTES % (AUTO) 26.2 % (13-45); MEAN CORPUSCULAR HEMOGLOBIN 29.4 pg (27.0-33.4); MEAN CORPUSCULAR HGB CONC 33.2 g/dL (32.0-36.0); MEAN CORPUSCULAR VOLUME 89 fl (80-97); MONOCYTES % (AUTO) 6.9 % (3-13); PLATELET COUNT 235 10^3/uL (150-450); RED BLOOD COUNT 4.28 10^6/uL (4.35-5.55); RED CELL DISTRIBUTION WIDTH 14.7 % (11.5-14.0); SEGMENTED NEUTROPHILS % (AUTO) 63.7 % (42-78); TOTAL CELLS COUNTED % (AUTO) 100 %; WHITE BLOOD COUNT 6.4 10^3/uL (4.0-10.5)
[2020-05-20] MEDS ORDERED: ACETAMINOPHEN 650 MG SUPP.RECT PR PRN (14:53)
[2020-05-20] MEDS ORDERED: ALBUTEROL SULFATE 0.083% NEB 2.5 MG/3 ML AMPUL NEB PRN (14:53)
[2020-05-20] MEDS ORDERED: DIPHENHYDRAMINE HCL 25 MG CAPSULE PO PRN (15:04)
[2020-05-20] MEDS ORDERED: HYDRALAZINE HCL INJ/PF 20 MG/1 ML SDV IV PRN (15:06)
[2020-05-20] MEDS ORDERED: DEXTROSE 50%-WATER 25 GM/50 ML DISP.SYRIN IV PRN ×2 (15:41)
[2020-05-20] MEDS ORDERED: GLUCAGON,HUMAN RECOMB 1 MG INJ IM PRN (15:41)
[2020-05-20] MEDS ORDERED: DEXTROSE 40% GEL 15 GM TUBE PO PRN ×2 (15:41)
[2020-05-20] MEDS: AMLODIPINE BESYLATE 10 MG TABLET PO SCH ×2 (16:09→16:40)
[2020-05-20 16:15] LABS: ALBUMIN 4.1 g/dL (3.5-5.0); ALKALINE PHOSPHATASE 101 U/L (38-126); ANION GAP 7 (5-19); ASPARTATE AMINO TRANSFERASE 23 U/L (17-59); BILIRUBIN,TOTAL 0.8 mg/dL (0.2-1.3); BLOOD UREA NITROGEN 15 mg/dL (7-20); CALCIUM 8.9 mg/dL (8.4-10.2); CARBON DIOXIDE 24 mmol/L (22-30); CHLORIDE 104 mmol/L (98-107); GLUCOSE 308 mg/dL (75-110); POTASSIUM 4.9 mmol/L (3.6-5.0); TOTAL PROTEIN 6.8 g/dL (6.3-8.2)
[2020-05-20] MEDS: INSULIN LISPRO 100 UNIT/ML 3 ML VIAL SUBCUT SCH ×2 (16:40→21:37)
[2020-05-20] MEDS: METFORMIN HCL 500 MG TABLET PO SCH (17:18)
[2020-05-20] MEDS ORDERED: (PENDING PHARMACY ID) (Metformin Hcl [Metformin Hcl] 1,000 MG) PO SCH (18:00)
--- NOTE | 2020-05-20 19:33 | PDOC H&P ---
History of Present Illness Admission Date/PCP: 05/20/20 14:06 ROSANGELA CALDERA Patient complains of: tongue swelling History of Present Illness: EMPERATRIZ ALVAREZ JR is a 54 year old male with a past medical history significant for hypertension, hyperlipidemia, CVA, DM 2, and obesity who presented to the emergency department with a complaint of right-sided tongue and lower lip swelling noted upon waking this morning. Evaluation in the emergency department revealed normal CBC, sed rate, chemistry (other than hyperglycemia). He was treated for angioedema with 1 unit FFP, racemic epinephrine nebulizer treatment, IV fluid bolus, Pepcid, Benadryl and Solu-Medrol. Patient's swelling and discomfort improved and he was subsequently per to the hospital service for further evaluation management of the above-stated complaints findings. Past Medical History Cardiac Medical History: Reports: Hyperlipidema, Hypertension Pulmonary Medical History: Reports: None EENT Medical History: Reports: None Neurological Medical History: Reports: Ischemic CVA Endocrine Medical History: Reports: Diabetes Mellitus Type 2, Obesity Renal/ Medical History: Reports: None Malignancy Medical History: Reports: None GI Medical History: Reports: None Musculoskeltal Medical History: Reports: None Skin Medical History: Reports: None Psychiatric Medical History: Reports: None Denies: Depression Traumatic Medical History: Reports: None Hematology: Reports: None Infectious Medical History: Reports: None Social History Information Source: Patient Lives with: Family Smoking Status: Current Some Day Smoker Electronic Cigarette use?: No Frequency of Alcohol Use: None Hx Recreational Drug Use: No Drugs: None Hx Prescription Drug Abuse: No - Advance Directive Resuscitation Status: Full Code Family History Family History: Reviewed & Not Pertinent Parental Family History Reviewed: Yes Children Family History Reviewed: Yes Sibling(s) Family History Reviewed.: Yes Medication/Allergy Home Medications: Aspirin [Ecotrin 81 mg EC Tablet] 81 mg PO DAILY 05/20/20 Atorvastatin Calcium [Lipitor 80 mg Tablet] 80 mg PO QHS 05/20/20 Clopidogrel Bisulfate [Plavix 75 mg Tablet] 75 mg PO DAILY 05/20/20 Glipizide [Glucotrol 10 mg Tablet] 10 mg PO DAILY 05/20/20 Hydrochlorothiazide [Hydrodiuril 12.5 mg Tablet] 12.5 mg PO DAILY 05/20/20 Losartan Potassium 100 mg PO DAILY 05/20/20 Metformin HCl 1,000 mg PO BID 05/20/20 Verapamil HCl [Verapamil ER] 180 mg PO DAILY 05/20/20 Allergies/Adverse Reactions: lisinopril Allergy (Verified 05/20/20 11:03) Review of Systems Constitutional: ABSENT: chills, fever(s), headache(s), weight gain, weight loss Eyes: ABSENT: visual disturbances Ears: ABSENT: hearing changes Nose, Mouth, and Throat: PRESENT: as per HPI Cardiovascular: ABSENT: chest pain, dyspnea on exertion, edema, orthropnea, palpitations Respiratory: ABSENT: cough, hemoptysis Gastrointestinal: ABSENT: abdominal pain, constipation, diarrhea, hematemesis, hematochezia, nausea, vomiting Genitourinary: ABSENT: dysuria, hematuria Musculoskeletal: ABSENT: joint swelling Integumentary: PRESENT: lesions - intermittent, migratory, wheels/hives to extremities x 1 week. ABSENT: rash, wounds Neurological: ABSENT: abnormal gait, abnormal speech, confusion, dizziness, focal weakness, syncope Psychiatric: ABSENT: anxiety, depression, homidical ideation, suicidal ideation Endocrine: ABSENT: cold intolerance, heat intolerance, polydipsia, polyuria Hematologic/Lymphatic: ABSENT: easy bleeding, easy bruising Physical Exam Vital Signs: Temp Pulse Resp BP Pulse Ox 98.1 F 115 H 19 185/90 H 100 05/20/20 16:12 05/20/20 17:38 05/20/20 16:12 05/20/20 17:38 05/20/20 16:12 Intake & Output 05/19/20 05/20/20 05/21/20 06:59 06:59 06:59 Intake Total 875 Balance 875 Weight 122.7 kg Results Laboratory Results: 05/20/20 11:10 05/20/20 15:15 05/20/20 05/20/20 05/20/20 11:10 11:27 15:15 WBC 6.4 RBC 4.28 L Hgb 12.6 L Hct 37.9 MCV 89 MCH 29.4 MCHC 33.2 RDW 14.7 H Plt Count 235 Seg Neutrophils % 63.7 Sodium 135.2 L Potassium 4.9 Chloride 104 Carbon Dioxide 24 Anion Gap 7 BUN 15 Creatinine 1.22 Est GFR ( Amer) > 60 Glucose 308 H Calcium 8.9 Total Bilirubin 0.8 AST 23 Alkaline Phosphatase 101 C-Reactive Protein 8.0 Total Protein 6.8 Albumin 4.1 Blood Type O POSITIVE Antibody Screen NEGATIVE Assessment and Plan - Diagnosis (1) Hives of unknown origin Is this a current diagnosis for this admission?: Yes Plan: Upon meeting the patient, the patient describes 1 week of migratory wheals/hives and edema to patches on his extremities and face. He notes that he had one episode, not as severe, approximately 1 week ago to his right sided tongue that he did not correlate with his current symptoms until prompted during our discussion. Therefore, I believe the patient is more likely exhibiting a new al lergic reaction to an unknown substance. We will continue p.o. prednisone, Pepcid, and OK Benadryl tonight. Outpatient PCP follow up. Technical Support Consultant outpatient consultation may also be beneficial. (2) Hypertension Is this a current diagnosis for this admission?: Yes Plan: Patient is placed on nifedipine 30 mg twice daily. Hydrochlorothiazide 25 mg daily. IV hydralazine as needed for blood pressure control. Cardiac diet. (3) Obesity Is this a current diagnosis for this admission?: Yes Plan: Dietary discretion lifestyle modification encouraged. Cardiac/consistent carb diet. (4) Diabetes Qualifiers: Diabetes mellitus type: type 2 Diabetes mellitus penitentiary insulin use: wi thout longwall headgate operator use Is this a current diagnosis for this admission?: Yes Plan: Continue home medication regiment. Patient is placed on a consistent carb diet. Accu-Cheks before meals and at bedtime with Humalog for sliding scale coverage. Hypoglycemia protocol in place. Registered dietitian health educator consulted. 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 Received 1 unit FFP, Benadryl, Pepcid, and Solu-Medrol while in the emergency department. Upon meeting the patient, the patient describes 1 week of migratory wheals/hives and edema to patches on his extremities and face. He notes that he had one episode, not as severe, approximately 1 week ago to his right sided tongue that he did not correlate with his current symptoms until prompted during our discussion. Therefore, I believe the patient is more likely exhibiting a new allergic reaction to an unknown substance. Sed rate is normal. We will continue p.o. prednisone, Pepcid, and OK Benadryl tonight. Due to severity of angioedema, will continue to avoid SABINO and arms. Patient is concerned that his verapamil may also be contributing cause. Ther ehsan will hold this and trial Procardia instead for control of his hypertension - Time Time Spent with patient: 35 or more minutes Medications reviewed and adjusted accordingly: Yes Anticipated Discharge Disposition: Home, Self Care Anticipated Discharge Timeframe: within 24 hours
[2020-05-20] MEDS ORDERED: INSULIN LISPRO 100 UNIT/ML 3 ML VIAL SUBCUT ONE (20:45)
[2020-05-20] MEDS: NIFEDIPINE 30 MG TAB.ER.24 PO SCH (21:11)
[2020-05-20] MEDS: FAMOTIDINE 20 MG TABLET PO SCH (21:11)
[2020-05-20] MEDS: HEPARIN SOD (PORCINE) 5,000 UNIT/ML 1 ML VIAL SUBCUT SCH (21:11)
[2020-05-20] MEDS ORDERED: ATORVASTATIN CALCIUM 80 MG TABLET PO SCH (22:00)
[2020-05-21] MEDS: HEPARIN SOD (PORCINE) 5,000 UNIT/ML 1 ML VIAL SUBCUT SCH ×2 (05:47→14:16)
[2020-05-21 06:14] LABS: HEMATOCRIT 32.9 % (37.9-51.0); HEMOGLOBIN 11.1 g/dL (13.5-17.0); MEAN CORPUSCULAR HEMOGLOBIN 29.4 pg (27.0-33.4); MEAN CORPUSCULAR HGB CONC 33.8 g/dL (32.0-36.0); MEAN CORPUSCULAR VOLUME 87 fl (80-97); PLATELET COUNT 228 10^3/uL (150-450); RED BLOOD COUNT 3.78 10^6/uL (4.35-5.55); RED CELL DISTRIBUTION WIDTH 14.8 % (11.5-14.0)
[2020-05-21 06:30] LABS: ANION GAP 10 (5-19); BLOOD UREA NITROGEN 19 mg/dL (7-20); CALCIUM 8.5 mg/dL (8.4-10.2); CARBON DIOXIDE 22 mmol/L (22-30); CHLORIDE 101 mmol/L (98-107); GLUCOSE 239 mg/dL (75-110); POTASSIUM 4.6 mmol/L (3.6-5.0)
[2020-05-21 06:32] LABS: WHITE BLOOD COUNT 14.5 10^3/uL (4.0-10.5)
[2020-05-21] MEDS: INSULIN LISPRO 100 UNIT/ML 3 ML VIAL SUBCUT SCH ×2 (07:43→11:39)
[2020-05-21] MEDS ORDERED: CLOPIDOGREL BISULFATE 75 MG TABLET PO SCH (10:00)
[2020-05-21] MEDS ORDERED: DOCUSATE SODIUM 100 MG CAPSULE PO SCH (10:00)
[2020-05-21] MEDS ORDERED: GLIPIZIDE 10 MG TABLET PO SCH (10:00)
[2020-05-21] MEDS ORDERED: PREDNISONE 20 MG TABLET PO SCH (10:00)
[2020-05-21] MEDS ORDERED: ASPIRIN 81 MG TABLET, ENT COATED PO SCH (10:00)
[2020-05-21] MEDS ORDERED: CETIRIZINE 10 MG TABLET PO SCH (10:00)
[2020-05-21] MEDS ORDERED: METOPROLOL TARTRATE 25 MG TABLET PO SCH ×2 (10:00)
[2020-05-21] MEDS: FAMOTIDINE 20 MG TABLET PO SCH (10:37)
[2020-05-21] MEDS: METFORMIN HCL 500 MG TABLET PO SCH (10:37)
[2020-05-21] MEDS: NIFEDIPINE 30 MG TAB.ER.24 PO SCH (10:37)
[2020-05-21 11:57] VITALS: BP 139/70
--- NOTE | 2020-05-21 16:05 | PDOC DISCHARGE SUMMARY ---
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 Is this a current diagnosis for this admission?: Yes - Additional Information Resuscitation Status: Full Code Discharge Diet: Cardiac, Diabetic Discharge Activity: Activity As Tolerated, Balance Activity w/Rest Referrals: CAROLINE FANG PA [Primary Care Provider] - (Follow up within 1 week) Prescriptions: Prednisone [Deltasone 20 mg Tablet] 60 mg PO ASDIR PRN #15 tablet PRN Reason: Metoprolol Tartrate [Lopressor 25 mg Tablet] 25 mg PO Q12 #60 tablet Nifedipine [Procardia XL 30 mg Tablet] 30 mg PO Q12 #60 tab.er.24 Cetirizine HCl [Zyrtec 10 mg Tablet] 10 mg PO DAILY #30 tablet Home Medications: Aspirin [Ecotrin 81 mg EC Tablet] 81 mg PO DAILY 05/20/20 Atorvastatin Calcium [Lipitor 80 mg Tablet] 80 mg PO QHS 05/20/20 Clopidogrel Bisulfate [Plavix 75 mg Tablet] 75 mg PO DAILY 05/20/20 Glipizide [Glucotrol 10 mg Tablet] 10 mg PO DAILY 05/20/20 Metformin HCl 1,000 mg PO BID 05/20/20 Acetaminophen [Tylenol 650 mg Supp] 650 mg MT Q4HP PRN supp.rect 05/21/20 Cetirizine HCl [Zyrtec 10 mg Tablet] 10 mg PO DAILY #30 tablet 05/21/20 Diphenhydramine HCl [Benadryl 25 mg Capsule] 25 mg PO Q6HP PRN capsule 05/21/20 Metoprolol Tartrate [Lopressor 25 mg Tablet] 25 mg PO Q12 #60 tablet 05/21/20 Nifedipine [Procardia XL 30 mg Tablet] 30 mg PO Q12 #60 tab.er.24 05/21/20 Prednisone [Deltasone 20 mg Tablet] 60 mg PO ASDIR PRN #15 tablet 05/21/20 History of Present Illiness History of Present Illness: EMPERATRIZ ALVAREZ JR is a 54 year old male with a past medical history significant for hypertension, hyperlipidemia, CVA, DM 2, and obesity who presented to the emergency department with a complaint of right-sided tongue and lower lip swelling noted upon waking this morning. Evaluation in the emergency department revealed normal CBC, sed rate, chemistry (other than hyperglycemia). He was treated for angioedema with 1 unit FFP, racemic epinephrine nebulizer treatment, IV fluid bolus, Pepcid, Benadryl and Solu-Medrol. Patient's swelling and discomfort improved and he was subsequently per to the hospital service for further evaluation management of the above-stated complaints findings. Hospital Course Hospital Course: (1) Hives of unknown origin Upon meeting the patient, the patient describes 1 week of migratory wheals/hives and edema to patches on his extremities and face. He notes that he had one episode, not as severe, approximately 1 week ago to his right sided tongue that he did not correlate with his current symptoms until prompted during our d iscussion. Therefore, I believe the patient is more likely exhibiting a new allergic reaction to an unknown substance. Received p.o. prednisone, Pepcid, and MT Benadryl tonight. Discharged on Zyrtec and Prednisone taper. Outpatient PCP follow up. [employer] outpatient consultation may also be beneficial. (2) Hypertension Adequately controlled BP and HR. Patient is placed on nifedipine 30 mg twice daily and metoprolol 25 mg daily. Increase to Hydrochlorothiazide 25 mg daily. Cardiac diet. (3) Obesity Dietary discretion lifestyle modification encouraged. Cardiac/consistent carb diet. (4) Diabetes Continue home medication regiment. Patient is placed on a consistent carb diet. 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 Received 1 unit FFP, Benadryl, Pepcid, and Solu-Medrol while in the emergency department. Upon meeting the patient, the patient describes 1 week of migratory wheals/hives and edema to patches on his extremities and face. He notes that he had one episode, not as severe, approximately 1 week ago to his right sided tongue that he did not correlate with his current symptoms until prompted during our discussion. Therefore, I believe the patient is more likely exhibiting a new allergic reaction to an unknown substance. Sed rate is normal. C4 compliment pending We will continue p.o. prednisone, Pepcid, and MT Benadryl tonight. Due to severity of angioedema, will continue to avoid Losartan. Patient is concerned that his verapamil may also be contributing cause. Therefore will hold this and trial Procardia instead for control of his hypertension Patient is discharged with prednisone taper. Physical Exam Vital Signs: Temp Pulse Resp BP Pulse Ox 97.8 F 112 H 19 139/70 H 99 05/21/20 13:53 05/21/20 13:53 05/21/20 13:53 05/21/20 13:53 05/21/20 13:53 Intake & Output 05/20/20 05/21/20 05/22/20 06:59 06:59 06:59 Intake Total 2225 830 Balance 2225 830 Weight 122.8 kg General appearance: PRESENT: no acute distress, cooperative, obese, well- developed, well-nourished Head exam: PRESENT: atraumatic, normocephalic Eye exam: PRESENT: conjunctiva pink, EOMI, PERRLA. ABSENT: scleral icterus Mouth exam: PRESENT: moist, tongue midline Respiratory exam: PRESENT: clear to auscultation melissa. ABSENT: rales, rhonchi, wheezes Cardiovascular exam: PRESENT: RRR. ABSENT: diastolic murmur, rubs, systolic murmur Pulses: PRESENT: normal dorsalis pedis pul Vascular exam: PRESENT: normal capillary refill Extremities exam: PRESENT: full ROM. ABSENT: calf tenderness, clubbing, pedal edema Musculoskeletal exam: PRESENT: ambulatory Neurological exam: PRESENT: alert, awake, oriented to person, oriented to place, oriented to time, oriented to situation, CN II-XII grossly intact. ABSENT: motor sensory deficit Psychiatric exam: PRESENT: appropriate affect, normal mood. ABSENT: homicidal ideation, suicidal ideation Skin exam: PRESENT: dry, intact, warm. ABSENT: cyanosis, rash Results Laboratory Results: WBC 14.5 10^3/uL (4.0-10.5) H D 05/21/20 05:24 RBC 3.78 10^6/uL (4.35-5.55) L 05/21/20 05:24 Hgb 11.1 g/dL (13.5-17.0) L 05/21/20 05:24 Hct 32.9 % (37.9-51.0) L 05/21/20 05:24 MCV 87 fl (80-97) 05/21/20 05:24 MCH 29.4 pg (27.0-33.4) 05/21/20 05:24 MCHC 33.8 g/dL (32.0-36.0) 05/21/20 05:24 RDW 14.8 % (11.5-14.0) H 05/21/20 05:24 Plt Count 228 10^3/uL (150-450) 05/21/20 05:24 Lymph % (Auto) 26.2 % (13-45) 05/20/20 11:10 Weld % (Auto) 6.9 % (3-13) 05/20/20 11:10 Eos % (Auto) 2.6 % (0-6) 05/20/20 11:10 Baso % (Auto) 0.6 % (0-2) 05/20/20 11:10 Absolute Neuts (auto) 4.1 10^3/uL (1.7-8.2) 05/20/20 11:10 Absolute Lymphs (auto) 1.7 10^3/uL (0.5-4.7) 05/20/20 11:10 Absolute Monos (auto) 0.4 10^3/uL (0.1-1.4) 05/20/20 11:10 Absolute Eos (auto) 0.2 10^3/uL (0.0-0.6) 05/20/20 11:10 Absolute Basos (auto) 0.0 10^3/uL (0.0-0.2) 05/20/20 11:10 Seg Neutrophils % 63.7 % (42-78) 05/20/20 11:10 ESR 17 mm/hr (0-20) 05/20/20 15:15 Sodium 132.5 mmol/L (137-145) L 05/21/20 05:24 Potassium 4.6 mmol/L (3.6-5.0) 05/21/20 05:24 Chloride 101 mmol/L (98-107) 05/21/20 05:24 Carbon Dioxide 22 mmol/L (22-30) 05/21/20 05:24 Anion Gap 10 (5-19) 05/21/20 05:24 BUN 19 mg/dL (7-20) 05/21/20 05:24 Creatinine 1.28 mg/dL (0.52-1.25) H 05/21/20 05:24 Est GFR ( Amer) > 60 (>60) 05/21/20 05:24 Est GFR (MDRD) Non-Af 58 (>60) L 05/21/20 05:24 Glucose 239 mg/dL (75-110) H 05/21/20 05:24 POC Glucose 261 mg/dL (70-110) H 05/21/20 11:10 Calcium 8.5 mg/dL (8.4-10.2) 05/21/20 05:24 Total Bilirubin 0.8 mg/dL (0.2-1.3) 05/20/20 15:15 Direct Bilirubin 0.0 mg/dL (0.0-0.4) 05/20/20 15:15 Neonat Total Bilirubin Not Reportable 05/20/20 15:15 Neonat Direct Bilirubin Not Reportable 05/20/20 15:15 Neonat Indirect Bili Not Reportable 05/20/20 15:15 AST 23 U/L (17-59) 05/20/20 15:15 ALT 20 U/L (<50) 05/20/20 15:15 Alkaline Phosphatase 101 U/L (38-126) 05/20/20 15:15 C-Reactive Protein 8.0 mg/L (<10.0) 05/20/20 15:15 Total Protein 6.8 g/dL (6.3-8.2) 05/20/20 15:15 Albumin 4.1 g/dL (3.5-5.0) 05/20/20 15:15 Blood Type O POSITIVE 05/20/20 11:27 Antibody Screen NEGATIVE 05/20/20 11:27 Plan Plan of Treatment: Is discharged home in stable condition. Expect follow-up with his primary care provider in 1 week. Take medications as prescribed. Complete steroid taper. Return to the emergency department as needed for concerning symptoms. Time Spent: Greater than 30 Minutes Stroke Is this a Stroke Patient?: No Acute Heart Failure - Is this a Heart Failure Patient?: No
== END 2020-05-21 14:30 | disposition home or self-care (01) ==
LOC: ER 09:48 → EH 14:06 → 4N 15:03
PROVIDERS: ADMIT Internal Medicine; ATTEND Internal Medicine
DX: T78.3XXA Angioneurotic edema, initial encounter (principal); T44.5X5A Adverse effect of predominantly beta-adrenoreceptor agonists, initial encounter; I10 Essential (primary) hypertension; E66.9 Obesity, unspecified; E78.5 Hyperlipidemia, unspecified; E11.65 Type 2 diabetes mellitus with hyperglycemia; F17.200 Nicotine dependence, unspecified, uncomplicated; R06.89 Other abnormalities of breathing; Z79.82 Long term (current) use of aspirin; Z79.84 Long term (current) use of oral hypoglycemic drugs; Z86.73 Personal history of transient ischemic attack (TIA), and cerebral infarction without residual deficits
CPT/HCPCS: 94640; 99285; 96374; 96375; 86900; 86901; 36415 ×2; 36430; 86850; 82962 ×2; 86160; 85025; 85027; 85652; 86140; 80048; 80053; G0378 ×2; P9017; J1644 ×2; A9270 ×16; J1200; J0360; J2920; S0028; J3490; J1815; J7512

== ENCOUNTER 2020-06-19 12:54 | Observation (INO) | payer MEDICARE ==
[2020-06-19] MEDS ORDERED: DIPHENHYDRAMINE HCL 50 MG/ML VIAL IV ONE (13:17)
[2020-06-19] MEDS ORDERED: FAMOTIDINE INJ/PF 20 MG/2 ML SDV IV ONE (13:17)
[2020-06-19] MEDS ORDERED: RACEPINEPHRINE HCL 2.25% NEB 0.5 ML AMPUL NEB ONE (13:17)
[2020-06-19] MEDS ORDERED: METHYLPREDNISOLONE INJ 125 MG/2 ML SDV IV ONE (13:18)
[2020-06-19] MEDS ORDERED: NORMAL SALINE 250 ML IV PRN ×2 (13:20)
[2020-06-19 13:36] LABS: ABSOLUTE BASOPHILS # (AUTO) 0.1 10^3/uL (0.0-0.2); ABSOLUTE EOSINOPHILS # (AUTO) 0.3 10^3/uL (0.0-0.6); ABSOLUTE LYMPHOCYTES (AUTO) 1.9 10^3/uL (0.5-4.7); ABSOLUTE MONOCYTES (AUTO) 0.6 10^3/uL (0.1-1.4); BASOPHILS % (AUTO) 0.9 % (0-2); EOSINOPHILS % (AUTO) 3.8 % (0-6); HEMATOCRIT 35.7 % (37.9-51.0); HEMOGLOBIN 12.2 g/dL (13.5-17.0); LYMPHOCYTES % (AUTO) 27.3 % (13-45); MEAN CORPUSCULAR HEMOGLOBIN 29.9 pg (27.0-33.4); MEAN CORPUSCULAR HGB CONC 34.2 g/dL (32.0-36.0); MEAN CORPUSCULAR VOLUME 88 fl (80-97); MONOCYTES % (AUTO) 8.6 % (3-13); PLATELET COUNT 253 10^3/uL (150-450); RED BLOOD COUNT 4.08 10^6/uL (4.35-5.55); RED CELL DISTRIBUTION WIDTH 15.1 % (11.5-14.0); SEGMENTED NEUTROPHILS % (AUTO) 59.4 % (42-78); TOTAL CELLS COUNTED % (AUTO) 100 %; WHITE BLOOD COUNT 6.8 10^3/uL (4.0-10.5)
[2020-06-19 13:51] LABS: ALBUMIN 3.9 g/dL (3.5-5.0); ALKALINE PHOSPHATASE 163 U/L (38-126); ANION GAP 11 (5-19); ASPARTATE AMINO TRANSFERASE 21 U/L (17-59); BILIRUBIN,DIRECT 0.3 mg/dL (0.0-0.4); BILIRUBIN,TOTAL 0.7 mg/dL (0.2-1.3); BLOOD UREA NITROGEN 20 mg/dL (7-20); CALCIUM 9.1 mg/dL (8.4-10.2); CARBON DIOXIDE 23 mmol/L (22-30); CHLORIDE 102 mmol/L (98-107); GLUCOSE 320 mg/dL (75-110); POTASSIUM 4.4 mmol/L (3.6-5.0); TOTAL PROTEIN 6.1 g/dL (6.3-8.2)
--- NOTE | 2020-06-19 14:01 | ER Document Report ---
Entered by NATACHA SALAZAR SCRIBE 06/19/20 1315 Acting as scribe for:ALEXY CUEVAS MD ED General - General Chief Complaint: Swelling of Tongue Stated Complaint: TONGUE SWELLING Time Seen by Provider: 06/19/20 13:10 Primary Care Provider: CAROLINE FANG PA [Primary Care Provider] - Follow up as needed Mode of Arrival: Ambulatory Information source: Patient Notes: This 54-year-old male patient presents to the emergency department today with complaints of tongue swelling which he noticed when he woke up this morning. He reports that it has not changed since waking up this morning. Patient has swelling to only the right side of his tongue. Patient was seen here about a month ago for angioedema and at that time he was on lisinopril. He was taken off lisinopril and has not taken it since that admission. Patient denies any throat swelling or difficulty swallowing. TRAVEL OUTSIDE OF THE [place] IN LAST 30 DAYS: No - Related Data Allergies/Adverse Reactions: lisinopril Allergy (Verified 06/19/20 13:05) Past Medical History - General Information source: Patient - Social History Smoking Status: Current Every Day Smoker Cigarette use (# per day): Yes Frequency of alcohol use: None Drug Abuse: None Lives with: Family Family History: Reviewed & Not Pertinent Patient has homicidal ideation: No - Past Medical History Cardiac Medical History: Reports: Hx Hypercholesterolemia, Hx Hypertension Neurological Medical History: Reports: Hx Cerebrovascular Accident Endocrine Medical History: Reports: Hx Diabetes Mellitus Type 2 Surgical Hx: Negative Review of Systems - Review of Systems Constitutional: No symptoms reported EENT: See HPI, Other - tongue swelling. denies: Difficulty swallowing, Throat swelling Cardiovascular: No symptoms reported Respiratory: No symptoms reported Gastrointestinal: No symptoms reported Genitourinary: No symptoms reported Male Genitourinary: No symptoms reported Musculoskeletal: No symptoms reported Skin: No symptoms reported Hematologic/Lymphatic: No symptoms reported Neurological/Psychological: No symptoms reported -: Yes All other systems reviewed and negative Physical Exam - Vital signs Vitals: Temp Pulse Resp BP Pulse Ox 98.7 F 96 16 141/78 H 100 06/19/20 13:08 06/19/20 13:08 06/19/20 13:08 06/19/20 13:08 06/19/20 13:08 - Notes Notes: Physical Exam: General: Alert, appears well. HEENT: Normocephalic. Atraumatic. PERRL. Extraocular movements intact. Right half of the tongue is swollen and glistening. There is no posterior oropharynx edema, airway is patent. Neck: Supple. Non-tender. Respiratory: No respiratory distress. Clear and equal breath sounds bilaterally. Cardiovascular: Regular rate and rhythm. Abdominal: Normal Inspection. Non-tender. No distension. Normal Bowel Sounds. Back: No gross abnormalities. Extremities: Moves all four extremities. Upper extremities: Normal inspection. Normal ROM. Lower extremities: Normal inspection. No edema. Normal ROM. Neurological: Normal cognition. AAOx4. Normal speech. Psychological: Normal affect. Normal Mood. Skin: Warm. Dry. Normal color. Course - Re-evaluation Re-evalutation: 06/19/20 15:18 Patient is reevaluated and the swelling to the right half of the tongue has gone down quite a bit but is still obvious. Patient reports that he does feel much better. - Vital Signs Vital signs: Temp Pulse Resp BP Pulse Ox 98.4 F 96 20 168/90 H 100 06/19/20 14:45 06/19/20 13:08 06/19/20 14:45 06/19/20 14:45 06/19/20 14:45 - Laboratory Result Diagrams: 06/19/20 13:20 06/19/20 13:20 Laboratory results interpreted by me: 06/19/20 06/19/20 13:20 13:20 RBC 4.08 L Hgb 12.2 L Hct 35.7 L RDW 15.1 H Sodium 136.3 L Glucose 320 H Alkaline Phosphatase 163 H Total Protein 6.1 L Discharge - Discharge Clinical Impression: Angioedema Qualifiers: Encounter type: initial encounter Qualified Code(s): T78.3XXA - Angioneurotic edema, initial encounter Condition: Stable Disposition: ADMITTED INPATIENT Admitting Provider: [facility] Admitted: Telemetry Referrals: CAROLINE FANG PA [Primary Care Provider] - Follow up as needed I personally performed the services described in the documentation, reviewed and edited the documentation which was dictated to the scribe in my presence, and it accurately records my words and actions.
[2020-06-19] MEDS: CETIRIZINE 10 MG TABLET PO SCH ×2 (16:38→19:37)
[2020-06-19] MEDS ORDERED: ACETAMINOPHEN 325 MG TABLET PO PRN (18:18)
[2020-06-19] MEDS ORDERED: MAGNESIUM HYDROXIDE SUSP 30 ML UDCUP PO PRN (18:18)
[2020-06-19] MEDS ORDERED: ONDANSETRON HCL INJ/PF 4 MG/2 ML SDV IV PRN (18:18)
[2020-06-19] MEDS ORDERED: MAG HYDROX/AL HYDROX/SIMETH SUSP 30 ML UDCUP PO PRN (18:18)
[2020-06-19] MEDS ORDERED: DEXTROSE 40% GEL 15 GM TUBE PO PRN ×2 (18:49)
[2020-06-19] MEDS ORDERED: DEXTROSE 50%-WATER 25 GM/50 ML DISP.SYRIN IV PRN ×2 (18:49)
[2020-06-19] MEDS ORDERED: GLUCAGON,HUMAN RECOMB 1 MG INJ IM PRN (18:49)
--- NOTE | 2020-06-19 19:06 | PDOC H&P ---
History of Present Illness Admission Date/PCP: 06/19/20 15:47 ROSANGELA CALDERA Patient complains of: tongue swelling History of Present Illness: Mr. Prem Bocanegra is a 54-year-old gentleman with a past medical history of HTN, HLD, DM2, CVA, PAD status post multiple stents in bilateral legs and a recent history of angioedema on 05/20/2020, for which he was admitted here at [facility], who presents today with tongue swelling. He notes a history of diffuse migratory wheals and hives associated with pruritus which started in April of this year. He is unsure what is precipitating the symptoms. He has noticed that when he eats peanuts that he sometimes gets a little bit of tongue swelling so he is started avoiding peanuts. Has not been able to find any other associations for his hives. He states that since his hospitalization on 05/20, has had several other episodes of mild tongue swelling that have not required presentation to the hospital. This moring, he awoke with much more severe tongue swelling and so he drove himself to the hospital ED. In the ED, he was noted to have tongue swelling without airway compromise, and he received racemic epi, Benadryl, Pepcid, and Solu-Medrol with subsequent complete resolution of his symptoms. Due to concern for potential worsening of his tongue swelling after discharge from the ED, he is being admitted overnight for observation to the Hospitalist service. Past Medical History Cardiac Medical History: Reports: Hyperlipidema, Hypertension, Peripheral Vascular Disease Neurological Medical History: Reports: Ischemic CVA Endocrine Medical History: Reports: Diabetes Mellitus Type 2 Past Surgical History Past Surgical History: Denies: None, Appendectomy, Cardiac Catheterization, Carotid Endarterectomy, Cholecystectomy, Colostomy, Coronary Artery Bypass Graft, Coronary Stent, Gastric Bypass Surgery, Herniorrhaphy, Hip Replacement, Ileostomy, Internal Defi brillator, Knee Replacement, Orthopedic Surgery, Pacemaker, Renal Transplant, Splenectomy, Thyroidectomy, Tonsillectomy, Valve Replacement, Vascular Surgery, Other Social History Lives with: Family Smoking Status: Current Every Day Smoker Frequency of Alcohol Use: None Hx Recreational Drug Use: No Drugs: None Hx Prescription Drug Abuse: No Family History Family History: Reviewed & Not Pertinent Parental Family History Reviewed: Yes Children Family History Reviewed: Yes Sibling(s) Family History Reviewed.: Yes Medication/Allergy Home Medications: Aspirin [Ecotrin 81 mg EC Tablet] 81 mg PO DAILY 05/20/20 Atorvastatin Calcium [Lipitor 80 mg Tablet] 80 mg PO QHS 05/20/20 Clopidogrel Bisulfate [Plavix 75 mg Tablet] 75 mg PO DAILY 05/20/20 Glipizide [Glucotrol 10 mg Tablet] 10 mg PO DAILY 05/20/20 Metformin HCl 1,000 mg PO BID 05/20/20 Acetaminophen [Tylenol 650 mg Supp] 650 mg OR Q4HP PRN supp.rect 05/21/20 Cetirizine HCl [Zyrtec 10 mg Tablet] 10 mg PO DAILY #30 tablet 05/21/20 Diphenhydramine HCl [Benadryl 25 mg Capsule] 25 mg PO Q6HP PRN capsule 05/21/20 Metoprolol Tartrate [Lopressor 25 mg Tablet] 25 mg PO Q12 #60 tablet 05/21/20 Nifedipine [Procardia XL 30 mg Tablet] 30 mg PO Q12 #60 tab.er.24 05/21/20 Prednisone [Deltasone 20 mg Tablet] 60 mg PO ASDIR PRN #15 tablet 05/21/20 Allergies/Adverse Reactions: lisinopril Allergy (Verified 06/19/20 13:05) Physical Exam Vital Signs: Temp Pulse Resp BP Pulse Ox 98 F 96 13 161/86 H 100 06/19/20 16:00 06/19/20 13:08 06/19/20 17:01 06/19/20 17:01 06/19/20 17:01 Intake & Output 06/18/20 06/19/20 06/20/20 06:59 06:59 06:59 Intake Total 588 Balance 588 Weight 119.3 kg Results Laboratory Results: 06/19/20 13:20 06/19/20 13:20 06/19/20 06/19/20 06/19/20 13:20 13:20 13:27 WBC 6.8 RBC 4.08 L Hgb 12.2 L Hct 35.7 L MCV 88 MCH 29.9 MCHC 34.2 RDW 15.1 H Plt Count 253 Seg Neutrophils % 59.4 Sodium 136.3 L Potassium 4.4 Chloride 102 Carbon Dioxide 23 Anion Gap 11 BUN 20 Creatinine 1.10 Est GFR ( Amer) > 60 Glucose 320 H Calcium 9.1 Total Bilirubin 0.7 AST 21 Alkaline Phosphatase 163 H Total Protein 6.1 L Albumin 3.9 Blood Type O POSITIVE Assessment and Plan - Diagnosis (1) Angioedema Qualifiers: Encounter type: initial encounter Qualified Code(s): T78.3XXA - Ang ioneurotic edema, initial encounter Is this a current diagnosis for this admission?: Yes (2) Hives of unknown origin Is this a current diagnosis for this admission?: Yes - Plan Summary Summary: Mr. Prem Bocanegra is a 54-year-old gentleman with a past medical history of HTN, HLD, DM2, CVA, PAD status post multiple stents in bilateral legs and a recent history of angioedema on May 20, 2020, for which he was admitted here at [facility], who presents today with tongue swelling. Notes a history of diffuse migratory wheals and hives associated with pruritus which started in April of this year. He is unsure what is precipitating the symptoms. He has noticed that when he eats peanuts that he sometimes gets a little bit of tongue swelling so he is started avoiding peanuts. Has not been able to find any other associations for his hives. He states that since his h ospitalization on 05/20, has had several other episodes of mild tongue swelling that have not required presentation to the hospital. This moring, he awoke with much more severe tongue swelling and so he drove himself to the hospital ED. In the ED, he was noted to have tongue swelling without airway compromise, and he received racemic epi, Benadryl, Pepcid, and Solu-Medrol with subsequent complete resolution of his symptoms. Due to concern for potential worsening of his tongue swelling after discharge from the ED, he is being admitted overnight for observation to the Hospitalist service. Prior evaluation on 05/20 revealed normal CBC with normal eosinophil count, normal ESR/CRP, and BMP notable for hyperglycemia only. C4 was sent and was also in the normal range. His symptoms resolved in the ED and did not reoccur during his observation in the hospital. His ACEI was discontinued and he was recommended to follow up with an algebra tutor as outpatient, which he has not done. Given the presence of urticaria and pruritis, allergic reaction (to foods, drugs, or insects) is the most likely cause of his presentation. Given that his angioedema is accompanied by urticaria and responsive to antihistamines, bradykinin-mediated angioedema (i.e. SABINO inhibitors and C1 inhibitor deficiency) is much less likely which would explain why his ESR, CRP and C4 were all normal during the last admission. I do not believe that he had ACEI-induced angioedema in May and lisinopril is unlikely to have been the cause of his presentation. 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 He will need follow up with an algebra tutor for the complete work-up, including skin allergy testing, to identify a trigger. He needs to have IgE serum levels checked, and may benefit from the addition of omalizumab injections to prevent further episodes of angioedema. For now, we will continue treatment with Zyrtec at high dose of 20 mg BID and monitor closely. If he has no further episodes overnight, he can be discharged home tomorrow with close outpatient PCP and Allergy follow up as outpatient. - Time Time Spent with patient: 25-34 minutes Anticipated Discharge Disposition: Home, Self Care Anticipated Discharge Timeframe: within 24 hours
[2020-06-19] MEDS ORDERED: INSULIN GLARGINE,HUM.REC.ANLOG 1,000 UNIT/10 ML VIAL (PYX) SUBCUT ONE ×2 (19:30→21:45)
[2020-06-19] MEDS: INSULIN LISPRO 100 UNIT/ML 3 ML VIAL SUBCUT SCH ×2 (19:36→22:01)
[2020-06-19] MEDS: NIFEDIPINE 30 MG TAB.ER.24 PO SCH (19:36)
[2020-06-19] MEDS: CLOPIDOGREL BISULFATE 75 MG TABLET PO SCH (19:36)
[2020-06-19] MEDS: METFORMIN HCL 500 MG TABLET PO SCH (19:36)
[2020-06-19 21:07] LABS: APPEARANCE,URINE CLEAR; BILIRUBIN,URINE NEGATIVE (NEGATIVE); COLOR,URINE STRAW; GLUCOSE, URINE >=500 mg/dL (NEGATIVE); KETONES,URINE TRACE mg/dL (NEGATIVE); LEUKOCYTE ESTERASE,URINE NEGATIVE (NEGATIVE); NITRITE,URINE NEGATIVE (NEGATIVE); PROTEIN,URINE 100 mg/dL (NEGATIVE); URINE SPECIFIC GRAVITY 1.018; UROBILINOGEN,URINE NEGATIVE mg/dL (<2.0)
[2020-06-19] MEDS: METOPROLOL TARTRATE 25 MG TABLET PO SCH (21:59)
[2020-06-19] MEDS: FAMOTIDINE 20 MG TABLET PO SCH (21:59)
[2020-06-19] MEDS ORDERED: ATORVASTATIN CALCIUM 80 MG TABLET PO SCH (22:00)
[2020-06-19] MEDS ORDERED: ASPIRIN 81 MG TABLET, CHEWABLE PO SCH (22:00)
[2020-06-20] MEDS: METFORMIN HCL 500 MG TABLET PO SCH (08:17)
[2020-06-20] MEDS: INSULIN LISPRO 100 UNIT/ML 3 ML VIAL SUBCUT SCH ×2 (08:18→11:55)
[2020-06-20] MEDS: NIFEDIPINE 30 MG TAB.ER.24 PO SCH (10:26)
[2020-06-20] MEDS: CLOPIDOGREL BISULFATE 75 MG TABLET PO SCH (10:27)
[2020-06-20] MEDS: METOPROLOL TARTRATE 25 MG TABLET PO SCH (10:27)
[2020-06-20] MEDS: FAMOTIDINE 20 MG TABLET PO SCH (10:27)
[2020-06-20] MEDS: CETIRIZINE 10 MG TABLET PO SCH (10:27)
[2020-06-20] MEDS ORDERED: INSULIN GLARGINE,HUM.REC.ANLOG 1,000 UNIT/10 ML VIAL (PYX) SUBCUT ONE ×2 (11:52→12:00)
[2020-06-20 12:58] VITALS: BP 140/74
--- NOTE | 2020-06-20 18:26 | PDOC DISCHARGE SUMMARY ---
Impression - Admit/DC Date/PCP Admission Date/Primary Care Provider: 06/19/20 15:47 ROSANGELA CALDERA Discharge Date: 06/20/20 - Discharge Diagnosis (1) Angioedema Is this a current diagnosis for this admission?: Yes (2) Hives of unknown origin Is this a current diagnosis for this admission?: Yes - Assessment Summary: Mr. Prem Bocanegra is a 54-year-old gentleman with a past medical history of HTN, HLD, DM2, CVA, PAD status post multiple stents in bilateral legs and a recent history of angioedema on May 20, 2020, for which he was admitted here at [facility], who presented on 06/19/2020 with tongue swelling. He noted a history of diffuse migratory wheals and hives associated with pruritus which started in April of this year. He is unsure what is precipitating the symptoms. He has noticed that when he eats peanuts that he sometimes gets a little bit of tongue swelling so he is started avoiding peanuts. Has not been able to find any other associations for his hives. He states that since his hospitalization on 05/20, has had several other episodes of mild tongue swelling that have not required presentation to the hospital. On the morning of admission, he awoke with much more severe tongue swelling and so he drove himself to the hospital ED. In the ED, he was noted to have tongue swelling without airway compromise, and he received racemic epi, Benadryl, Pepcid, and Solu-Medrol with subsequent complete resolution of his symptoms. Due to concern for potential worsening of his tongue swelling after discharge from the ED, he was admitted overnight for observation to the Hospitalist service. His prior inpatient evaluation on 05/20 revealed normal CBC with normal eosinophil count, normal ESR/CRP, and BMP notable for hyperglycemia only. C4 was sent and was also in the normal range. His symptoms resolved in the ED and did not reoccur during his observation in the hospital. His ACEI was discontinued and he was recommended to follow up with an correctional nurse as outpatient, which he has not done. Given the presence of urticaria and pruritis, allergic reaction (to foods, d rugs, or insects) is the most likely cause of his presentation. Given that his angioedema is accompanied by urticaria and responsive to antihistamines, bradykinin-mediated angioedema (i.e. SABINO inhibitors and C1 inhibitor deficiency) is much less likely which would explain why his ESR, CRP and C4 were all normal during the last admission (ESR and CRP were again normal on this admission). I do not believe that he had ACEI-induced angioedema in May and lisinopril is unlikely to have been the cause of his presentation at that time. 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 He will need close outpatient follow up with an correctional nurse for the complete work-up, including skin allergy testing, to identify a trigger. He needs to have IgE serum levels checked, and may benefit from the addition of omalizumab injections to prevent further episodes of angioedema. For now, we will continue treatment with Zyrtec at high dose of 20 mg BID and also discharge him with an EpiPen prescription. - Additional Information Resuscitation Status: Full Code Discharge Diet: Cardiac, Diabetic Discharge Activity: Activity As Tolerated, Walk Frequently Referrals: CAROLINE FANG PA [Primary Care Provider] - 06/27/20 10:15 am Prescriptions: Epinephrine [Epipen 2-Osmar] 0.3 mg IJ ONCE PRN #1 auto.injct PRN Reason: Cetirizine HCl [Zyrtec 10 mg Tablet] 20 mg PO BID #120 tablet Home Medications: Aspirin [Ecotrin 81 mg EC Tablet] 81 mg PO DAILY 05/20/20 Atorvastatin Calcium [Lipitor 80 mg Tablet] 80 mg PO QHS 05/20/20 Clopidogrel Bisulfate [Plavix 75 mg Tablet] 75 mg PO DAILY 05/20/20 Glipizide [Glucotrol 10 mg Tablet] 10 mg PO DAILY 05/20/20 Metformin HCl 1,000 mg PO BID 05/20/20 Acetaminophen [Tylenol 650 mg Supp] 650 mg GA Q4HP PRN supp.rect 05/21/20 Diphenhydramine HCl [Benadryl 25 mg Capsule] 25 mg PO Q6HP PRN capsule 05/21/20 Metoprolol Tartrate [Lopressor 25 mg Tablet] 25 mg PO Q12 #60 tablet 05/21/20 Nifedipine [Procardia XL 30 mg Tablet] 30 mg PO Q12 #60 tab.er.24 05/21/20 Cetirizine HCl [Zyrtec 10 mg Tablet] 20 mg PO BID #120 tablet 06/20/20 Epinephrine [Epipen 2-Osmar] 0.3 mg IJ ONCE PRN #1 auto.injct 06/20/20 Verapamil HCl [Verapamil ER] 180 mg PO DAILY 06/20/20 History of Present Illiness History of Present Illness: Mr. Prem Bocanegra is a 54-year-old gentleman with a past medical history of HTN, HLD, DM2, CVA, PAD status post multiple stents in bilateral legs and a recent history of angioedema on 05/20/2020, for which he was admitted here at [facility], who presents today with tongue swelling. He notes a history of diffuse migratory wheals and hives associated with pruritus which started in April of this year. He is unsure what is precipitating the symptoms. He has noticed that when he eats peanuts that he sometimes gets a little bit of tongue swelling so he is started avoiding peanuts. Has not been able to find any other associations for his hives. He states that since his hospitalization on 05/20, has had several other episodes of mild tongue swelling that have not required presentation to the hospital. This moring, he awoke with much more severe tongue swelling and so he drove himself to the hospital ED. In the ED, he was noted to have tongue swelling without airway compromise, and he received racemic epi, Benadryl, Pepcid, and Solu-Medrol with subsequent complete resolution of his symptoms. Due to concern for potential worsening of his tongue swelling after discharge from the ED, he is being admitted overnight for observation to the Hospitalist service. Physical Exam Vital Signs: Temp Pulse Resp BP Pulse Ox 98.7 F 83 18 140/74 H 98 06/20/20 12:00 06/20/20 12:00 06/20/20 12:00 06/20/20 12:00 06/20/20 12:00 Intake & Output 06/19/20 06/20/20 06/21/20 06:59 06:59 06:59 Intake Total 0858 496 Balance 2448 496 Weight 119 kg Results Laboratory Results: WBC 6.8 10^3/uL (4.0-10.5) 06/19/20 13:20 RBC 4.08 10^6/uL (4.35-5.55) L 06/19/20 13:20 Hgb 12.2 g/dL (13.5-17.0) L 06/19/20 13:20 Hct 35.7 % (37.9-51.0) L 06/19/20 13:20 MCV 88 fl (80-97) 06/19/20 13:20 MCH 29.9 pg (27.0-33.4) 06/19/20 13:20 MCHC 34.2 g/dL (32.0-36.0) 06/19/20 13:20 RDW 15.1 % (11.5-14.0) H 06/19/20 13:20 Plt Count 253 10^3/uL (150-450) 06/19/20 13:20 Lymph % (Auto) 27.3 % (13-45) 06/19/20 13:20 [place] % (Auto) 8.6 % (3-13) 06/19/20 13:20 Eos % (Auto) 3.8 % (0-6) 06/19/20 13:20 Baso % (Auto) 0.9 % (0-2) 06/19/20 13:20 Absolute Neuts (auto) 4.0 10^3/uL (1.7-8.2) 06/19/20 13:20 Absolute Lymphs (auto) 1.9 10^3/uL (0.5-4.7) 06/19/20 13:20 Absolute Monos (auto) 0.6 10^3/uL (0.1-1.4) 06/19/20 13:20 Absolute Eos (auto) 0.3 10^3/uL (0.0-0.6) 06/19/20 13:20 Absolute Basos (auto) 0.1 10^3/uL (0.0-0.2) 06/19/20 13:20 Seg Neutrophils % 59.4 % (42-78) 06/19/20 13:20 ESR 18 mm/hr (0-20) 06/19/20 13:20 Sodium 136.3 mmol/L (137-145) L 06/19/20 13:20 Potassium 4.4 mmol/L (3.6-5.0) 06/19/20 13:20 Chloride 102 mmol/L (98-107) 06/19/20 13:20 Carbon Dioxide 23 mmol/L (22-30) 06/19/20 13:20 Anion Gap 11 (5-19) 06/19/20 13:20 BUN 20 mg/dL (7-20) 06/19/20 13:20 Creatinine 1.10 mg/dL (0.52-1.25) 06/19/20 13:20 Est GFR ( Amer) > 60 (>60) 06/19/20 13:20 Est GFR (MDRD) Non-Af > 60 (>60) 06/19/20 13:20 Glucose 320 mg/dL (75-110) H 06/19/20 13:20 POC Glucose 403 mg/dL (70-110) H* 06/20/20 13:00 Calcium 9.1 mg/dL (8.4-10.2) 06/19/20 13:20 Total Bilirubin 0.7 mg/dL (0.2-1.3) 06/19/20 13:20 Direct Bilirubin 0.3 mg/dL (0.0-0.4) 06/19/20 13:20 Neonat Total Bilirubin Not Reportable 06/19/20 13:20 Neonat Direct Bilirubin Not Reportable 06/19/20 13:20 Neonat Indirect Bili Not Reportable 06/19/20 13:20 AST 21 U/L (17-59) 06/19/20 13:20 ALT 18 U/L (<50) 06/19/20 13:20 Alkaline Phosphatase 163 U/L (38-126) H 06/19/20 13:20 C-Reactive Protein 7.1 mg/L (<10.0) 06/19/20 13:20 Total Protein 6.1 g/dL (6.3-8.2) L 06/19/20 13:20 Albumin 3.9 g/dL (3.5-5.0) 06/19/20 13:20 Urine Color STRAW 06/19/20 20:33 Urine Appearance CLEAR 06/19/20 20:33 Urine pH 6.0 (5.0-9.0) 06/19/20 20:33 Ur Specific [place] 1.018 06/19/20 20:33 Urine Protein 100 mg/dL (NEGATIVE) H 06/19/20 20:33 Urine Glucose (UA) >=500 mg/dL (NEGATIVE) H 06/19/20 20:33 Urine Ketones TRACE mg/dL (NEGATIVE) H 06/19/20 20:33 Urine Blood NEGATIVE (NEGATIVE) 06/19/20 20:33 Urine Nitrite NEGATIVE (NEGATIVE) 06/19/20 20:33 Urine Bilirubin NEGATIVE (NEGATIVE) 06/19/20 20:33 Urine Urobilinogen NEGATIVE mg/dL (<2.0) 06/19/20 20:33 Ur Leukocyte Esterase NEGATIVE (NEGATIVE) 06/19/20 20:33 Urine WBC (Auto) 0 /HPF 06/19/20 20:33 Urine RBC (Auto) 1 /HPF 06/19/20 20:33 Urine Mucus (Auto) RARE /LPF 06/19/20 20:33 Urine Ascorbic Acid NEGATIVE (NEGATIVE) 06/19/20 20:33 Blood Type O POSITIVE 06/19/20 13:27 Stroke Is this a Stroke Patient?: No Acute Heart Failure Is this a Heart Failure Patient?: No
[2020-06-20] MEDS ORDERED: INSULIN GLARGINE,HUM.REC.ANLOG 1,000 UNIT/10 ML VIAL SUBCUT SCH (22:00)
== END 2020-06-20 13:32 | disposition home or self-care (01) ==
LOC: ER 12:54 → INTOOBSV 15:47 → EH 15:47 → 4N 18:09
PROVIDERS: ADMIT Hospitalist; ATTEND Hospitalist
DX: T78.3XXA Angioneurotic edema, initial encounter (principal); X58.XXXA Exposure to other specified factors, initial encounter; L50.8 Other urticaria; I10 Essential (primary) hypertension; E78.5 Hyperlipidemia, unspecified; E11.65 Type 2 diabetes mellitus with hyperglycemia; E11.51 Type 2 diabetes mellitus with diabetic peripheral angiopathy without gangrene; F17.210 Nicotine dependence, cigarettes, uncomplicated; Z95.828 Presence of other vascular implants and grafts; Z88.8 Allergy status to other drugs, medicaments and biological substances; Z91.010 Allergy to peanuts; Z86.73 Personal history of transient ischemic attack (TIA), and cerebral infarction without residual deficits; Z79.82 Long term (current) use of aspirin; Z79.899 Other long term (current) drug therapy; Z79.02 Long term (current) use of antithrombotics/antiplatelets; Z79.84 Long term (current) use of oral hypoglycemic drugs
CPT/HCPCS: 99285; 86900; 86901; 36415; 36430; 82962 ×2; 85025; 85652; 86140; 80053; 81001; G0378 ×2; P9017; A9270 ×18; J1200; J2930; S0028; J3490; J1815